=== PATIENT | male | born 1970 | race Two or more races ===

== ENCOUNTER 2019-12-14 13:07 | Inpatient (IN) | payer MEDICAID ==
[~2019-12-14] VITALS: Ht 165.1 cm; Wt 66.0 kg
[2019-12-14] MEDS: FAMOTIDINE 20 MG TAB PO SCH (01:30)
[2019-12-14] MEDS ORDERED: ACETAMINOPHEN 325 MG TAB PO ONE ×2 (14:07→14:30)
[2019-12-14 15:32] LABS: Albumin 1.5 g/dL (3.4-5.0); Calcium 8.2 mg/dL (8.5-10.1); Magnesium 2.3 mg/dL (1.6-2.6); Potassium 4.5 mmol/L (3.5-5.1)
[2019-12-14 15:33] LABS: Basophils # (auto) 0 10 ^3/uL (0-0.2); Basophils % (auto) 0.2 % (0.0-2.0); Eosinophils # (auto) 0.6 10 ^3/uL (0-0.8); Eosinophils % (auto) 3.5 % (0.0-7.0); Hematocrit 41.8 % (41.0-53.0); Hemoglobin 13.7 g/dL (13.5-17.5); Lymphocytes # (auto) 1.1 10 ^3/uL (0.4-5.4); Lymphocytes % (auto) 6.3 % (10.0-50.0); Mean Corpuscular Hemoglobin 28.9 pg (28.0-32.0); Mean Corpuscular Hgb Conc. 32.8 g/dL (32.0-36.0); Mean Corpuscular Volume 88.1 fL (80.0-100.0); Monocytes # (auto) 0.4 10 ^3/uL (0-1.3); Monocytes % (auto) 2.6 % (0.0-12.0); Neutrophils # (auto) 14.8 10 ^3/uL (1.6-8.6); Neutrophils % (auto) 87.4 % (37.0-80.0); Platelet Count (auto) 444 10^3/uL (140-450); Red Blood Cells 4.74 10^6/uL (4.5-5.90); Red Cell Distribution Width 12.9 % (11.8-14.3); White Blood Cell 16.9 10^3/uL (4.4-10.8)
[2019-12-14 15:35] LABS: BUN/Creatinine Ratio 17.5; Bilirubin, Total 0.3 mg/dL (0.2-1.0); Total Protein 6.5 g/dL (6.4-8.2)
[2019-12-14] MEDS ORDERED: SODIUM CHLORIDE 0.9% 1,000 ML IVB ONE (18:47)
[2019-12-14] MEDS ORDERED: AZITHROMYCIN 500MG/ 250ML 250 ML IV ONE (19:00)
[2019-12-14] MEDS ORDERED: DOXYCYCLINE 100 MG TAB/CAP PO ONE (19:00)
[2019-12-14] MEDS ORDERED: SODIUM CHLORIDE 0.9% 1,000 ML IV SCH (21:32)
[2019-12-14] MEDS ORDERED: NITROGLYCERIN 0.4 MG SL TAB SL PRN (21:45)
[2019-12-14] MEDS ORDERED: MORPHINE SULF INJ 2 MG/ML SYRINGE 1ML IV PRN (21:45)
[2019-12-14] MEDS ORDERED: cefTRIAXone 1GM/50ML D5W 50 ML IV ONE (21:45)
[2019-12-14] MEDS ORDERED: ONDANSETRON HCL 4 MG/2 ML VIAL IV PRN (21:45)
[2019-12-14] MEDS ORDERED: TEMAZEPAM 15 MG CAP PO PRN (21:45)
[2019-12-14] MEDS ORDERED: DEXTROSE (50%) 50ML SYRG IV PRN (21:45)
[2019-12-14] MEDS ORDERED: ALBUTEROL SULF HFA 90MCG INH 200DOSE IN SCH (22:00)
[2019-12-14] MEDS: ACETAMINOPHEN 500 MG TAB PO PRN (23:15)
[2019-12-14] MEDS ORDERED: IPRATROPIUM BROM 0.5 MG/2.5ML INH SOL ONE (23:27)
[2019-12-14] MEDS ORDERED: ALBUTEROL SULF 2.5 MG/0.5ML(0.5%) NEB SOLN ONE (23:27)
[2019-12-15] MEDS: ACETAMINOPHEN 500 MG TAB PO PRN ×3 (00:34→13:49)
[2019-12-15 01:00] LABS: Magnesium 2.3 mg/dL (1.6-2.6)
[2019-12-15 01:03] LABS: Lactic Acid w/Reflex 2.1 mmol/L (0.4-2.0)
[2019-12-15 01:09] LABS: Lactate Dehydrogenase 330 U/L (87-241)
[2019-12-15] MEDS: FAMOTIDINE 20 MG TAB PO SCH ×3 (01:30→22:15)
[2019-12-15 01:47] LABS: CRP High Sensitivity > 19.0 mg/dL (< 0.3)
[2019-12-15 02:04] LABS: Basophils # (auto) 0 10 ^3/uL (0-0.2); Basophils % (auto) 0.2 % (0.0-2.0); Eosinophils # (auto) 0.2 10 ^3/uL (0-0.8); Eosinophils % (auto) 1.4 % (0.0-7.0); Hematocrit 36.6 % (41.0-53.0); Lymphocytes # (auto) 1.5 10 ^3/uL (0.4-5.4); Lymphocytes % (auto) 8.4 % (10.0-50.0); Mean Corpuscular Hemoglobin 28.5 pg (28.0-32.0); Mean Corpuscular Hgb Conc. 32.7 g/dL (32.0-36.0); Monocytes # (auto) 1.2 10 ^3/uL (0-1.3); Monocytes % (auto) 6.5 % (0.0-12.0); Neutrophils # (auto) 14.8 10 ^3/uL (1.6-8.6); Neutrophils % (auto) 83.5 % (37.0-80.0); Platelet Count (auto) 413 10^3/uL (140-450); Red Cell Distribution Width 13.3 % (11.8-14.3); White Blood Cell 17.7 10^3/uL (4.4-10.8)
[2019-12-15] MEDS: ACCU-CHEK COMFORT CURVE STRIP VI SCH ×4 (02:06→17:21)
[2019-12-15] MEDS: InsuLIN REG 1unit/0.01ml Soln (100units/ml) SC SCH ×4 (02:10→17:52)
[2019-12-15 02:22] LABS: Albumin 1.3 g/dL (3.4-5.0); BUN/Creatinine Ratio 21.6; Calcium 7.1 mg/dL (8.5-10.1); Potassium 3.7 mmol/L (3.5-5.1)
[2019-12-15 02:25] LABS: Bilirubin, Total 0.2 mg/dL (0.2-1.0); Total Protein 5.6 g/dL (6.4-8.2)
[2019-12-15 02:26] LABS: INR 1.08 (0.9-1.15); Partial Thromboplastin Time 28.1 sec (23.64-32.05)
[2019-12-15 04:58] LABS: Urine Bacteria NONE SEEN /hpf (None Seen); Urine Blood Negative /uL (Negative); Urine Specific Gravity 1.038 (1.001-1.035); Urine WBC 1 /hpf (0 - 3)
[2019-12-15] MEDS ORDERED: ENOXAPARIN SOD 40 MG/0.4 ML SYRINGE SC SCH (10:00)
[2019-12-15] MEDS: ASCORBIC ACID 1,000 MG TAB PO SCH (10:02)
[2019-12-15] MEDS: CHOLECALCIFEROL (VITD3) 1,000UNIT=25mCg TAB PO SCH (10:02)
[2019-12-15] MEDS: AZITHROMYCIN 500MG/ 250ML 250 ML IV SCH (10:02)
[2019-12-15] MEDS: ZINC SULFATE 220mg CAP or TAB PO SCH (10:02)
[2019-12-15] MEDS ORDERED: PIPERACILLIN-TAZO 4.5GM 100 ML IV ONE (12:45)
[2019-12-15] MEDS ORDERED: InsuLIN REG 1unit/0.01ml Soln (100units/ml) IV ONE (13:00)
[2019-12-15] MEDS ORDERED: SODIUM CHLORIDE 0.9% 1,000 ML IV ONE (13:00)
[2019-12-15] MEDS ORDERED: IOHEXOL 350 MG/ML 100ML IJ ONE (13:48)
[2019-12-15] MEDS: guaiFENesin-DM 100/10mg/5ml SYR PO PRN (13:48)
[2019-12-15] MEDS ORDERED: VANCOMYCIN PER PHARMACY 0 MG IV SCH (15:45)
[2019-12-15] MEDS: VANCOMYCIN 1GM/250ML 250 ML IV SCH (17:00)
[2019-12-15] MEDS ORDERED: cefTRIAXone 1GM/50ML D5W 50 ML IV SCH (22:00)
[2019-12-15] MEDS ORDERED: ENOXAPARIN SOD 80 MG/0.8ML SYRINGE SC SCH (22:00)
[2019-12-15] MEDS: PIPERACILLIN-TAZO 4.5GM 100 ML IV SCH (22:15)
[2019-12-15] MEDS: INSULIN LANTUS (GLARGINE) 1 /0.01ml (100units/ml) SC SCH (22:19)
[2019-12-15] MEDS ORDERED: ALBUTEROL SULF 2.5 MG/0.5ML(0.5%) NEB SOLN NEB ONE (23:00)
[2019-12-15] MEDS ORDERED: IPRATROPIUM BROM 0.5 MG/2.5ML INH SOL NEB ONE (23:00)
[2019-12-16] VITALS (10 sets, daily range): BP systolic 88–168; BP diastolic 54–85
[2019-12-16] MEDS: ACCU-CHEK COMFORT CURVE STRIP VI SCH ×4 (00:36→18:55)
[2019-12-16] MEDS: InsuLIN REG 1unit/0.01ml Soln (100units/ml) SC SCH ×4 (00:39→18:55)
[2019-12-16] MEDS: VANCOMYCIN 1GM/250ML 250 ML IV SCH ×3 (02:41→20:45)
[2019-12-16] MEDS: SODIUM CHLORIDE 0.9% 1,000 ML IV SCH ×4 (02:43→21:30)
[2019-12-16] MEDS: PIPERACILLIN-TAZO 4.5GM 100 ML IV SCH ×3 (06:58→22:35)
[2019-12-16] MEDS ORDERED: guaiFENesin-DM 100/10mg/5ml SYR PO PRN (07:15)
[2019-12-16] MEDS: ACETAMINOPHEN 500 MG TAB PO PRN ×2 (07:39→16:47)
[2019-12-16] MEDS: guaiFENesin-DM 100/10mg/5ml SYR PO PRN (07:39)
[2019-12-16] MEDS ORDERED: MIDAZOLAM HCL 5 MG/ML-1ML VIAL ONE ×2 (08:29→08:43)
[2019-12-16] MEDS ORDERED: MIDAZOLAM DRIP 50 mg/50mL 50 ML IV ONE (08:34)
[2019-12-16] MEDS ORDERED: ETOMIDATE (2MG/ML) 20ML VIAL IV ONE ×2 (08:45→09:30)
[2019-12-16] MEDS ORDERED: fentaNYL CITRATE 100 MCG/2 ML VL ONE (08:53)
[2019-12-16] MEDS: MIDAZOLAM DRIP 50 mg/50mL 50 ML IV SCH (09:27)
[2019-12-16] MEDS ORDERED: fentaNYL CITRATE 100 MCG/2 ML VL IV ONE (09:30)
[2019-12-16] MEDS ORDERED: MIDAZOLAM HCL 5 MG/ML-1ML VIAL IV ONE ×2 (09:30→10:00)
[2019-12-16] MEDS: FAMOTIDINE 20 MG TAB PO SCH ×2 (10:00→22:00)
[2019-12-16] MEDS: ASCORBIC ACID 1,000 MG TAB PO SCH (10:00)
[2019-12-16] MEDS: CHOLECALCIFEROL (VITD3) 1,000UNIT=25mCg TAB PO SCH (10:00)
[2019-12-16] MEDS: ZINC SULFATE 220mg CAP or TAB PO SCH (10:00)
[2019-12-16 10:04] LABS: BUN/Creatinine Ratio 11.1; Calcium 7.5 mg/dL (8.5-10.1); Potassium 3.3 mmol/L (3.5-5.1)
[2019-12-16] MEDS ORDERED: NOREPINEPHRINE 8 MG/250ML KIT 250 ML IV ONE (10:27)
[2019-12-16] MEDS ORDERED: NOREPINEPHRINE 8 MG/250ML KIT 250 ML IV SCH (10:30)
[2019-12-16] MEDS: ENOXAPARIN SOD 40 MG/0.4 ML SYRINGE SC SCH (10:46)
[2019-12-16] MEDS: INSULIN LANTUS (GLARGINE) 1 /0.01ml (100units/ml) SC SCH ×2 (10:49→23:16)
[2019-12-16] MEDS: AZITHROMYCIN 500MG/ 250ML 250 ML IV SCH (11:37)
--- NOTE | 2019-12-16 13:06 | NUR ---
RT NOTE: FIO2 DECREASED TO 85% FROM 100%. RN ALVARO AWARE. PT. APPEARS TO BE TOLERATING WELL.
[2019-12-16] MEDS: POTASSIUM CHL 20MEQ/100ML 100 ML IV SCH ×2 (16:10→17:46)
[2019-12-16] MEDS ORDERED: PROPOFOL 100 ML IV ONE (18:08)
[2019-12-16] MEDS: PROPOFOL 100 ML IV SCH (18:10)
[2019-12-16] MEDS: FAMOTIDINE (10MG/ML) 2ML VL IV SCH (22:42)
[2019-12-16] MEDS ORDERED: ACETAMINOPHEN 650 MG RECT SUPP PR PRN (22:45)
[2019-12-16] MEDS ORDERED: ACETAMINOPHEN 325 MG RECT SUPP PR ONE (23:32)
[2019-12-16] MEDS ORDERED: ACETAMINOPHEN 650 MG RECT SUPP PR ONE (23:36)
[2019-12-17] VITALS (12 sets, daily range): BP systolic 87–142; BP diastolic 50–80
[2019-12-17] MEDS: ACCU-CHEK COMFORT CURVE STRIP VI SCH ×3 (00:52→19:30)
[2019-12-17] MEDS: InsuLIN REG 1unit/0.01ml Soln (100units/ml) SC SCH ×3 (00:52→19:30)
[2019-12-17] MEDS: VANCOMYCIN 1GM/250ML 250 ML IV SCH ×3 (05:33→21:24)
[2019-12-17] MEDS: PIPERACILLIN-TAZO 4.5GM 100 ML IV SCH ×3 (06:00→22:00)
[2019-12-17] MEDS ORDERED: IBUPROFEN 100MG/5ML ORAL SUSP 100 MG/5 ML UD GT PRN (06:30)
[2019-12-17] MEDS ORDERED: ACETAMINOPHEN 650 mg PER 20 mL UD PO PRN (06:30)
[2019-12-17] MEDS: ACETAMINOPHEN 650 mg PER 20 mL UD PO PRN (07:05)
[2019-12-17] MEDS: SODIUM CHLORIDE 0.9% 1,000 ML IV SCH (07:25)
[2019-12-17] MEDS: FAMOTIDINE (10MG/ML) 2ML VL IV SCH ×2 (08:43→21:42)
[2019-12-17] MEDS: MIDAZOLAM DRIP 50 mg/50mL 50 ML IV SCH ×3 (09:27→23:30)
[2019-12-17] MEDS: AZITHROMYCIN 500MG/ 250ML 250 ML IV SCH (10:00)
[2019-12-17] MEDS: ZINC SULFATE 220mg CAP or TAB PO SCH (10:00)
[2019-12-17] MEDS: CHOLECALCIFEROL (VITD3) 1,000UNIT=25mCg TAB PO SCH (10:00)
[2019-12-17] MEDS: ENOXAPARIN SOD 40 MG/0.4 ML SYRINGE SC SCH (10:00)
[2019-12-17] MEDS ORDERED: FAMOTIDINE (10MG/ML) 2ML VL IV SCH (10:00)
[2019-12-17] MEDS: ASCORBIC ACID 1,000 MG TAB PO SCH (10:00)
[2019-12-17 10:22] LABS: Basophils # (auto) 0 10 ^3/uL (0-0.2); Basophils % (auto) 0.1 % (0.0-2.0); Eosinophils # (auto) 0.8 10 ^3/uL (0-0.8); Eosinophils % (auto) 6.8 % (0.0-7.0); Hemoglobin 9.1 g/dL (13.5-17.5); Lymphocytes # (auto) 0.9 10 ^3/uL (0.4-5.4); Lymphocytes % (auto) 7.7 % (10.0-50.0); Mean Corpuscular Hemoglobin 28.9 pg (28.0-32.0); Mean Corpuscular Hgb Conc. 31.3 g/dL (32.0-36.0); Mean Corpuscular Volume 92.3 fL (80.0-100.0); Monocytes # (auto) 0.4 10 ^3/uL (0-1.3); Monocytes % (auto) 3.6 % (0.0-12.0); Neutrophils # (auto) 9.3 10 ^3/uL (1.6-8.6); Neutrophils % (auto) 81.8 % (37.0-80.0); Platelet Count (auto) 276 10^3/uL (140-450); Red Blood Cells 3.15 10^6/uL (4.5-5.90); Red Cell Distribution Width 13.4 % (11.8-14.3); White Blood Cell 11.4 10^3/uL (4.4-10.8)
[2019-12-17 10:30] LABS: Magnesium 2.1 mg/dL (1.6-2.6)
[2019-12-17 10:39] LABS: BUN/Creatinine Ratio 9.2; Bilirubin, Total 0.2 mg/dL (0.2-1.0); Total Protein 5.2 g/dL (6.4-8.2)
[2019-12-17 10:43] LABS: Calcium 5.9 mg/dL (8.5-10.1)
[2019-12-17 10:50] LABS: Albumin 0.7 g/dL (3.4-5.0); Potassium 2.9 mmol/L (3.5-5.1)
[2019-12-17] MEDS: ALBUMIN 25% 50 ML IV SCH ×2 (11:30→20:17)
[2019-12-17] MEDS: POTASSIUM CHL 20MEQ/100ML 100 ML IV SCH ×2 (11:30→19:00)
[2019-12-17] MEDS: FLUCONAZOLE 200MG/100ML 100 ML IV SCH ×2 (13:00→14:00)
[2019-12-17] MEDS: PROPOFOL 100 ML IV SCH ×2 (19:00→23:30)
[2019-12-17 19:03] LABS: Lactic Acid w/Reflex 2.2 mmol/L (0.4-2.0)
[2019-12-17] MEDS: INSULIN LANTUS (GLARGINE) 1 /0.01ml (100units/ml) SC SCH (22:00)
[2019-12-18] VITALS (13 sets, daily range): BP systolic 94–138; BP diastolic 49–75
[2019-12-18] MEDS: SODIUM CHLORIDE 0.9% 1,000 ML IV SCH ×2 (00:05→16:45)
[2019-12-18] MEDS: InsuLIN REG 1unit/0.01ml Soln (100units/ml) SC SCH ×4 (00:30→18:13)
[2019-12-18] MEDS: ACETAMINOPHEN 650 mg PER 20 mL UD PO PRN ×2 (03:40→12:09)
[2019-12-18] MEDS: ALBUMIN 25% 50 ML IV SCH (03:44)
[2019-12-18] MEDS: MIDAZOLAM DRIP 50 mg/50mL 50 ML IV SCH ×2 (04:00→06:43)
[2019-12-18] MEDS: PROPOFOL 100 ML IV SCH ×2 (04:00→06:45)
[2019-12-18 05:48] LABS: Basophils # (auto) 0.1 10 ^3/uL (0-0.2); Basophils % (auto) 0.5 % (0.0-2.0); Eosinophils # (auto) 1.7 10 ^3/uL (0-0.8); Eosinophils % (auto) 11.1 % (0.0-7.0); Hematocrit 30.8 % (41.0-53.0); Hemoglobin 10.2 g/dL (13.5-17.5); Lymphocytes # (auto) 0.9 10 ^3/uL (0.4-5.4); Lymphocytes % (auto) 5.9 % (10.0-50.0); Mean Corpuscular Hemoglobin 28.9 pg (28.0-32.0); Mean Corpuscular Hgb Conc. 33.2 g/dL (32.0-36.0); Mean Corpuscular Volume 87.3 fL (80.0-100.0); Monocytes # (auto) 0.6 10 ^3/uL (0-1.3); Monocytes % (auto) 3.6 % (0.0-12.0); Neutrophils # (auto) 12.4 10 ^3/uL (1.6-8.6); Neutrophils % (auto) 78.9 % (37.0-80.0); Platelet Count (auto) 371 10^3/uL (140-450); Red Blood Cells 3.53 10^6/uL (4.5-5.90); White Blood Cell 15.7 10^3/uL (4.4-10.8)
[2019-12-18] MEDS: ACCU-CHEK COMFORT CURVE STRIP VI SCH ×4 (06:07→18:13)
[2019-12-18] MEDS: NOREPINEPHRINE 8 MG/250ML KIT 250 ML IV SCH (06:15)
[2019-12-18 06:18] LABS: Albumin 1.4 g/dL (3.4-5.0); Calcium 7.9 mg/dL (8.5-10.1); Magnesium 2.5 mg/dL (1.6-2.6); Potassium 4.1 mmol/L (3.5-5.1)
[2019-12-18 06:21] LABS: BUN/Creatinine Ratio 16.1; Bilirubin, Total 0.3 mg/dL (0.2-1.0); Total Protein 5.6 g/dL (6.4-8.2)
[2019-12-18] MEDS: PIPERACILLIN-TAZO 4.5GM 100 ML IV SCH ×2 (06:25→14:49)
--- NOTE | 2019-12-18 06:30 | NUR ---
Respiratory note: FIO2 INCREASED TO % FOR SPO2 OF 82%. RN IDRIS AWARE OF CHANGE.
--- NOTE | 2019-12-18 06:55 | NUR ---
Respiratory note: RECEIVED PATIENT ON V20 V200 VENT ORALLY INTUBATED WITH AN 8.0 ETT SECURED VIA MYRNA AT THE 23CM MARKING AT THE LIP, AND MECHANICALLY VENTILATED WITH THE CHARTED SETTINGS. SPO2 89%, LUNG SOUNDS DIM T/O. SMALL AMOUNT OF THICK YELLOW SECRETIONS WHEN SUCTIONED. SKIN IS WARM/DRY TO THE TOUCH AND IS INTACT NEAR MYRNA SITE. THERE IS A NGT IN THE RIGHT NARE, AND A TRIPLE LUMEN CENTRAL LINE IS PLACED IN THE RIGHT IJ. NO NEW AM CXR TO ASSESS. PATIENT IS SEDATED ON VERSED AND PROPOFOL DRIPS AND IS UNRESPONSIVE TO BOTH VERBAL/TACTILE STIMULI. HE IS RESTING COMFORTABLY AND TOLERATING VENT WELL, NO CHANGES MADE. VENT PLUGGED INTO RED OUTLET AND ALL ALARMS ARE SET AND AUDIBLE. WILL CONTINUE TO ASSESS PATIENT WELL VENTILATOR FUNCTION.
[2019-12-18] MEDS: VANCOMYCIN 1GM/250ML 250 ML IV SCH ×4 (06:59→18:34)
[2019-12-18] MEDS: ASCORBIC ACID 1,000 MG TAB PO SCH (10:00)
[2019-12-18] MEDS: FAMOTIDINE (10MG/ML) 2ML VL IV SCH (10:18)
[2019-12-18] MEDS: ENOXAPARIN SOD 40 MG/0.4 ML SYRINGE SC SCH (10:20)
[2019-12-18] MEDS: INSULIN LANTUS (GLARGINE) 1 /0.01ml (100units/ml) SC SCH ×2 (10:20→22:20)
[2019-12-18] MEDS: AZITHROMYCIN 500MG/ 250ML 250 ML IV SCH (10:25)
--- NOTE | 2019-12-18 11:15 | NUR ---
WOUND CARE NOTE: PATIENT NOTED TO BE INTUBATED, ADDED PATIENT TO SKIN INTEGRITY MONITORING. PATIENT ADMITTED TO [facility] WITH DIAGNOSIS OF PNA. CURRENT RASHIDA SCORE ASSESSED AT 10. PATIENT IS RESTING ON HOSPITAL BED. HE IS INTUBATED, SEDATED. PER BEDSIDE NURSE, HE IS WOUND FREE AT THIS TIME. APPLIED NAMAN FOAM BOOTS PREVENTATIVE TO BILATERAL FEET/HEELS. RECOMMEND: FREQUENT TURN SCHEDULE Q 2 HOURS, PRN CONDITION PERMITS, WITH PRESSURE REDISTRIBUTION USING PILLOWS/WEDGES, BID/PRN APPLICATION WITH MOISTURE BARRIER CREAM, OPTIFOAM GENTLE SACRAL DRESSING, NAMAN FOAM BOOTS TO BILATERAL FEET/HEELS, DIETARY CONSULT FOR INTUBATION STATUS, CONTINUED MONITORING BY WOUND CARE TEAM.
[2019-12-18] MEDS ORDERED: methylPREDNISolone SOD SUCC 40 MG/ML VL IV ONE (11:30)
[2019-12-18] MEDS: FLUCONAZOLE 200MG/100ML 100 ML IV SCH ×2 (12:13→13:00)
[2019-12-18] MEDS: methylPREDNISolone SOD SUCC 40 MG/ML VL IV SCH ×2 (14:00→22:19)
[2019-12-18] MEDS ORDERED: FUROSEMIDE 40 MG/4 ML VIAL IV ONE (14:30)
[2019-12-18] MEDS ORDERED: MEROPENEM 1GM IVPB 100 ML IV ONE (20:00)
[2019-12-18] MEDS ORDERED: POTASSIUM EFFERVESENT TAB 25 MEQ GT ONE (20:15)
[2019-12-18] MEDS: LINEZOLID 600MG/300ML 300 ML IV SCH (21:46)
[2019-12-18] MEDS ORDERED: MEROPENEM 1GM IVPB 100 ML IV SCH (22:00)
[2019-12-18] MEDS: ENOXAPARIN SOD 80 MG/0.8ML SYRINGE SC SCH (22:19)
--- NOTE | 2019-12-18 23:45 | NUR ---
RECEIVED PT FROM ER. PT CONNECTED TO MECHANICAL VENTILATOR AND APPLIED TO ANIMAL SHELTER CLERK ONCE IN ICU BED. PT HAS VERSED AT 15 MCG AND PROP AT 35 MCG RUNNING FOR SEDATION. SINUS TACH ON MONITOR. VITAL SIGNS FOLLOWS: HR 109, 84% FI02, BP 109/56, RR 26, AND TEMP 100.6 ORALLY. ET SIZE 8/24 CM AT THE LIP. VENT SETTINGS FOLLOWS: AC 18, vT 550, PEEP 10 AND FI02 OF 100%. WHEN SUCTIONED ORALLY COPIOUS WHITE, THICK SECRETIONS NOTED. WHEN SUCTIONED DOWN ET TUBE SMALL AMOUNT OF WHITE, THICK SECRETIONS NOTED. PT TURNED WHEN PLACED IN ICU BED AND 02 SATS MAINTAINING BETWEEN 84-88% DESPITE SUCTIONING, HIGH FOWLERS, AND LAVAGE BY RT. WILL REASSESS PT TOLERANCE TO TURNING. PT HAS RIJ TLC PLACED 12/16/19, R HAND 20G, RAC 18G. SCDS AND NAMAN BOOTS APPLIED. PHOTOS TAKEN OF SACRAL AREA AND WOUND CONSULT PLACED. NG TUBE TO RIGHT NARE, POSITIVE PLACEMENT NOTED. TUBE REMAINS CLAMPED.
[2019-12-19] VITALS (104 sets, daily range): BP systolic 86–116; BP diastolic 49–68
[2019-12-19] MEDS: InsuLIN REG 1unit/0.01ml Soln (100units/ml) SC SCH ×5 (00:05→23:57)
[2019-12-19 00:33] LABS: Basophils # (auto) 0 10 ^3/uL (0-0.2); Basophils % (auto) 0.2 % (0.0-2.0); Eosinophils # (auto) 0 10 ^3/uL (0-0.8); Eosinophils % (auto) 0.1 % (0.0-7.0); Hemoglobin 10.3 g/dL (13.5-17.5); Lymphocytes # (auto) 0.6 10 ^3/uL (0.4-5.4); Mean Corpuscular Hemoglobin 29.2 pg (28.0-32.0); Mean Corpuscular Hgb Conc. 33.1 g/dL (32.0-36.0); Mean Corpuscular Volume 88.2 fL (80.0-100.0); Monocytes # (auto) 0.3 10 ^3/uL (0-1.3); Monocytes % (auto) 2.1 % (0.0-12.0); Neutrophils # (auto) 13.2 10 ^3/uL (1.6-8.6); Neutrophils % (auto) 93.6 % (37.0-80.0); Platelet Count (auto) 424 10^3/uL (140-450); Red Blood Cells 3.51 10^6/uL (4.5-5.90); White Blood Cell 14.1 10^3/uL (4.4-10.8)
[2019-12-19 01:20] LABS: Albumin 1.2 g/dL (3.4-5.0); BUN/Creatinine Ratio 23.6; Calcium 7.9 mg/dL (8.5-10.1)
[2019-12-19 01:23] LABS: Bilirubin, Total 0.4 mg/dL (0.2-1.0); Total Protein 5.7 g/dL (6.4-8.2)
--- NOTE | 2019-12-19 02:05 | NUR ---
PT UNABLE TO TOLERATE TURNING AT THIS TIME DUE TO FI02 AND SATS MAINTAINING BETWEEN 89-91%.
[2019-12-19] MEDS: methylPREDNISolone SOD SUCC 40 MG/ML VL IV SCH ×3 (05:25→22:15)
[2019-12-19] MEDS: MIDAZOLAM DRIP 50 mg/50mL 50 ML IV SCH ×5 (05:26→22:30)
[2019-12-19] MEDS: ACCU-CHEK COMFORT CURVE STRIP VI SCH ×5 (05:30→23:58)
--- NOTE | 2019-12-19 07:30 | NUR ---
Opening Shift Note Assumed care of patient, intubated and sedated. No S/S of distress/SOB or pain. See interventions for complete assessment. Bed locked on low position, side rails up x2, bed alarms on at all times. Will continue to monitor for changes Q1hr and PRN.
--- NOTE | 2019-12-19 08:05 | NUR ---
Received call from patient's son Kahlil who's able to provide password. Updated on patient's status and POC, verbalized understanding. All questions and concerns addressed.
--- NOTE | 2019-12-19 09:00 | NUR ---
Received call from patient's son Don who's able to provide password. Updated on patient's status and POC, verbalized understanding. All questions and concerns addressed.
[2019-12-19] MEDS: SODIUM CHLORIDE 0.9% 1,000 ML IV SCH (09:04)
[2019-12-19] MEDS: LINEZOLID 600MG/300ML 300 ML IV SCH ×2 (09:04→20:17)
[2019-12-19] MEDS: PROPOFOL 100 ML IV SCH ×3 (09:06→18:04)
--- NOTE | 2019-12-19 09:20 | NUR ---
Dr Cooley at bedside, updated on patient's status. Patient seen and examined. Received order to start patient on Azithromax 500 IV daily. Orders read back and verified. Will carry out.
[2019-12-19] MEDS ORDERED: POTASSIUM EFFERVESENT TAB 25 MEQ GT SCH (10:00)
[2019-12-19] MEDS ORDERED: FUROSEMIDE 40 MG/4 ML VIAL IV SCH (10:00)
[2019-12-19] MEDS ORDERED: AZITHROMYCIN 500MG/ 250ML 250 ML IV SCH (10:00)
[2019-12-19] MEDS: IPRATROPIUM BROM 0.5 MG/2.5ML INH SOL NEB SCH ×4 (10:06→22:04)
[2019-12-19] MEDS: ALBUTEROL SULF 2.5 MG/0.5ML(0.5%) NEB SOLN NEB SCH ×4 (10:06→22:03)
--- NOTE | 2019-12-19 11:00 | NUR ---
Spoke to patient's daughter Ayla who's able to provided password. Updated on patient's status and POC, verbalized understanding. All questions and concerns addressed.
[2019-12-19] MEDS: ENOXAPARIN SOD 80 MG/0.8ML SYRINGE SC SCH (11:12)
[2019-12-19] MEDS: ASCORBIC ACID 1,000 MG TAB PO SCH (11:13)
[2019-12-19] MEDS: MEROPENEM 1GM IVPB 100 ML IV SCH ×2 (11:14→18:02)
--- NOTE | 2019-12-19 11:30 | NUR ---
WOUND CARE NOTE: New wound care request received regarding patient's skin integrity issue that are noted by bedside nurse upon patient's arrival to unit. Patient is 49 y/o Male with admitting diagnosis of Pna. Patient is resting in bed in Rm. 102. Patient is intubated,sedated and mechanically ventilated. Patient appears to be in no pain using Fall Contreras Faces Pain Scale.HIs Rick score is 12. Bedside nurse noted and took photograph of hyperpigmented skin to patient's distal sacrum which is undetermined if Stage 1 pressure injury, ecchymosis vs DTI. Per patient's nurse request not to turn patient at this time due to "unstable to turn". Unable to assess and palpate. Patient is receiving BID/PRN cleaning and application of Barrier cream to sacral/buttocks per MD order. Wound care will try to see patient at later time. Addendum: 12/19/19 at 1835 by So Guzman RN [id number] able to see patient for sacral and back skin assessment. Noted patient's distal sacrum/upper buttocks has triangular shaped non-blanchable dark redness consistent with Stage 1 pressure injury. Bedside nurse cleansed and applied Z Guard cream to patient's sacrum as ordered. Intact light purple ecchymosis also noted to his L lower back, area is clean and dry, left open to air. Repositioned patient for comfort facing his Rt. side, redistributed pressure points with pillows. Patient tolerated well. LENNOX Suarez at bedside.
--- NOTE | 2019-12-19 12:00 | NUR ---
Dr Amaro at bedside, updated on patient's status. Patient seen and examined. Received order to start patient on Glucerna at 30 ml. Read back and verified. Will carry out.
--- NOTE | 2019-12-19 12:23 | NUR ---
Nutrition Assessment Notes Please refer to link for full assessment notes. Est Energy needs: 1006-5477 kcals (17-20 kcal/kgBW) Est Protein needs: 100-133 gms/day (1.2-1.6 gm/kgBW) Will continue to monitor and reassess prn. Addendum: 12/19/19 at [address] Amended: Links added.
[2019-12-19] MEDS ORDERED: Glucerna 1.2 Cal 1Liter BOTTLE GT SCH (12:30)
[2019-12-19] MEDS: INSULIN LANTUS (GLARGINE) 1 /0.01ml (100units/ml) SC SCH ×2 (12:43→23:57)
[2019-12-19] MEDS: FLUCONAZOLE 200MG/100ML 100 ML IV SCH ×2 (13:01→15:41)
[2019-12-19] MEDS ORDERED: PANTOPRAZOLE 40 MG/10 ML VIAL INJ IV ONE (14:45)
[2019-12-19] MEDS: NOREPINEPHRINE 8 MG/250ML KIT 250 ML IV SCH (18:02)
--- NOTE | 2019-12-19 21:50 | NUR ---
SEDATION RESTARTED PATIENT IS CONTINUOUSLY COUGHING. ORAL AND ETT SUCTION DONE. VERSED DRIP RESTARTED.
[2019-12-20] VITALS (108 sets, daily range): BP systolic 94–141; BP diastolic 46–71
--- NOTE | 2019-12-20 01:00 | NUR ---
Central Line Dressing Changes Central line dressing change done with a sterile technique. Cleansed with chloraprep scrub/betadine. bio-patch applied to the site. Occlusive dressing applied.
--- NOTE | 2019-12-20 01:30 | NUR ---
Patient bathe/linen change Patient given complete bath with chlorhexidine wipes. Skin integrity assessed for any changes. Linens changed. Patient repositioned for comfort.
[2019-12-20] MEDS: IPRATROPIUM BROM 0.5 MG/2.5ML INH SOL NEB SCH ×6 (02:22→22:10)
[2019-12-20] MEDS: ALBUTEROL SULF 2.5 MG/0.5ML(0.5%) NEB SOLN NEB SCH ×6 (02:22→22:10)
[2019-12-20] MEDS: MEROPENEM 1GM IVPB 100 ML IV SCH ×3 (02:48→17:45)
[2019-12-20] MEDS: MIDAZOLAM DRIP 50 mg/50mL 50 ML IV SCH ×4 (05:04→21:28)
[2019-12-20] MEDS: methylPREDNISolone SOD SUCC 40 MG/ML VL IV SCH ×3 (05:33→22:36)
[2019-12-20] MEDS: ACCU-CHEK COMFORT CURVE STRIP VI SCH ×3 (05:34→17:45)
[2019-12-20] MEDS: InsuLIN REG 1unit/0.01ml Soln (100units/ml) SC SCH ×3 (06:26→18:46)
[2019-12-20 06:37] LABS: BUN/Creatinine Ratio 31.4; Potassium 4.5 mmol/L (3.5-5.1)
[2019-12-20] MEDS: NOREPINEPHRINE 8 MG/250ML KIT 250 ML IV SCH (06:50)
--- NOTE | 2019-12-20 07:30 | NUR ---
Opening Shift Note Assumed care of patient, intubated and sedated. See interventions for complete assessment. Bed locked on low position, side rails up x2, bed alarms on at all times, will continue to monitor for changes Q1hr and PRN.
[2019-12-20] MEDS: LINEZOLID 600MG/300ML 300 ML IV SCH ×2 (08:34→19:44)
--- NOTE | 2019-12-20 09:00 | NUR ---
Patient coughing and facial grimacing, sedation increased. Will continue to monitor.
--- NOTE | 2019-12-20 09:40 | NUR ---
Dr Cooley at bedside, updated on patient's status. Patient seen and examined. Received order for RT to pull ET 1.5 cm out and to re-start Diprivan due to patient's work of breathing, no plans for CPAP at this time. Orders read back and verified. Will carry out.
[2019-12-20] MEDS: PROPOFOL 100 ML IV SCH ×2 (10:16→17:44)
[2019-12-20] MEDS: ENOXAPARIN SOD 40 MG/0.4 ML SYRINGE SC SCH (10:19)
[2019-12-20] MEDS: PANTOPRAZOLE 40 MG/10 ML VIAL INJ IV SCH (10:20)
[2019-12-20] MEDS: ASCORBIC ACID 1,000 MG TAB PO SCH (10:21)
[2019-12-20] MEDS: INSULIN LANTUS (GLARGINE) 1 /0.01ml (100units/ml) SC SCH ×2 (10:41→22:57)
--- NOTE | 2019-12-20 10:50 | NUR ---
Dr Amaro at bedside, updated on patient's status. Patient seen and examined. Will carry out new orders.
--- NOTE | 2019-12-20 11:13 | NUR ---
Received call from patient's son Kahlil who's able to provide password. Updated on patient's status and POC, verbalized understanding. All questions and concerns addressed.
[2019-12-20] MEDS: FLUCONAZOLE 200MG/100ML 100 ML IV SCH ×2 (12:42→13:51)
--- NOTE | 2019-12-20 12:45 | NUR ---
This RN came back from lunch, patient RR high 30's, BP 130's, HR 110's, patient grimacing. Sedation increased. Will continue to monitor.
--- NOTE | 2019-12-20 14:21 | NUR ---
assessment Patient is a 49 year old male in ICU. Per patients daughter Ayla prior to admission patient lived home with her and was independent. Per Ayla patient had a cough for weeks before going to ER. Per Ayla hair cough was getting worse so she transported patient to ER. Patient has no need for DME prior to admission. Patient uses [facility] in [place]. Patient has no insurance. Per Choco Santamaria of [facility] he may qualify if family brings back paperwork for [employer]. I informed Ayla I will continue to monitor and follow up as appropriate. Ayla verbalized understanding. Addendum: 12/20/19 at 1434 by Valery SHARPE Amended: Links added.
--- NOTE | 2019-12-20 15:36 | NUR ---
Patient's HR low 60's, SBP low 100's, patient on moderate sedation. Will decrease sedation and continue to monitor.
--- NOTE | 2019-12-20 18:10 | NUR ---
Respiratory note: NEW VENT SETTINGS WERE GIVEN PER DR. Leland MCCARTHY, RN AWARE. ABG TO FOLLOW IN 2 HOURS.
--- NOTE | 2019-12-20 19:32 | NUR ---
Opening Shift Note Assumed care of patient who is sedated and connected to ventilator. No S/S of distress/SOB or pain. Patient does have elevated temp. Cooling measures stated. Ventilation orders match ventilator setting. Patient attached to continuous EKG monitoring, continuous pulse oximetry, and a BP cuff is wrapped around his right arm, set to measure BP q 15 minutes. Instructed on POC and to call for assist PRN, will continue to monitor for changes Q1hr and PRN.
--- NOTE | 2019-12-20 21:25 | NUR ---
Unable to attempt sedation vacation at this time. Patient required more sedation (Versed increased--see IV spreadsheet). Patient too unstable at this time. Addendum: 12/20/19 at 2126 by HARSHAL PUENTE RN Amended: Links added.
--- NOTE | 2019-12-20 22:58 | NUR ---
Patient's son, Kahlil, called and, after confirming password, I gave a brief update.
[2019-12-21] VITALS (107 sets, daily range): BP systolic 106–144; BP diastolic 49–70
[2019-12-21] MEDS: ACCU-CHEK COMFORT CURVE STRIP VI SCH ×5 (00:44→23:56)
[2019-12-21] MEDS: InsuLIN REG 1unit/0.01ml Soln (100units/ml) SC SCH ×5 (00:50→23:55)
--- NOTE | 2019-12-21 01:31 | NUR ---
Performed sterile dressing change to right IJ catheter after it became soiled by mucus. Stitches intact securing IJ to skin. No signs of redness or inflammation. No drainage from cath site. Cleansed site and placed new Biopatch across site. Site covered with Tegaderm. Name, date, and initials written on sticker placed over cath site. Patient tolerated well.
[2019-12-21] MEDS: ALBUTEROL SULF 2.5 MG/0.5ML(0.5%) NEB SOLN NEB SCH ×6 (02:25→21:50)
[2019-12-21] MEDS: IPRATROPIUM BROM 0.5 MG/2.5ML INH SOL NEB SCH ×6 (02:25→21:50)
[2019-12-21] MEDS: MEROPENEM 1GM IVPB 100 ML IV SCH ×3 (03:02→17:48)
[2019-12-21] MEDS: PROPOFOL 100 ML IV SCH ×3 (03:03→21:19)
--- NOTE | 2019-12-21 03:21 | NUR ---
Turned patient, suctioned, and performed oral care. Patient tolerated well. Will continue to assess.
[2019-12-21 04:02] LABS: Basophils # (auto) 0 10 ^3/uL (0-0.2); Basophils % (auto) 0.2 % (0.0-2.0); Eosinophils # (auto) 0 10 ^3/uL (0-0.8); Hematocrit 28.5 % (41.0-53.0); Hemoglobin 9.6 g/dL (13.5-17.5); Lymphocytes # (auto) 0.3 10 ^3/uL (0.4-5.4); Lymphocytes % (auto) 4.7 % (10.0-50.0); Mean Corpuscular Hemoglobin 29.1 pg (28.0-32.0); Mean Corpuscular Hgb Conc. 33.6 g/dL (32.0-36.0); Mean Corpuscular Volume 86.8 fL (80.0-100.0); Monocytes # (auto) 0.4 10 ^3/uL (0-1.3); Monocytes % (auto) 4.9 % (0.0-12.0); Neutrophils # (auto) 6.6 10 ^3/uL (1.6-8.6); Neutrophils % (auto) 90.2 % (37.0-80.0); Platelet Count (auto) 502 10^3/uL (140-450); Red Blood Cells 3.29 10^6/uL (4.5-5.90); Red Cell Distribution Width 13.1 % (11.8-14.3); White Blood Cell 7.4 10^3/uL (4.4-10.8)
[2019-12-21 04:21] LABS: BUN/Creatinine Ratio 37.1; Calcium 8.2 mg/dL (8.5-10.1); Potassium 3.9 mmol/L (3.5-5.1)
--- NOTE | 2019-12-21 05:12 | NUR ---
Complete bed bath and linen change performed. Patient tolerated well. Room restocked for AM shift. Will continue to assess.
[2019-12-21] MEDS: NOREPINEPHRINE 8 MG/250ML KIT 250 ML IV SCH (06:32)
--- NOTE | 2019-12-21 07:14 | NUR ---
Closing shift note. Patient care endorsed to LENNOX Rivera. Patient sedated with RASS of -3, laying in bed in comfortable position. No sign of distress or pain.
[2019-12-21] MEDS: MIDAZOLAM DRIP 50 mg/50mL 50 ML IV SCH ×3 (07:45→20:32)
--- NOTE | 2019-12-21 08:00 | NUR ---
RESIDUALS RECEIVED PATIENT WITH TUBE FEEDINGS OFF DUE TO HIGH RESIDUALS, CURRENT RESIDUALS 20CC. WILL RESTART FEEDINGS AT LOW RATE AND CONTINUE TO MONITOR
[2019-12-21] MEDS: LINEZOLID 600MG/300ML 300 ML IV SCH ×2 (08:20→20:40)
--- NOTE | 2019-12-21 09:10 | NUR ---
DR MCCARTHY AT BEDSIDE DISCUSSED PATIENTS STATUS, NO NEW ORDERS RECEIVED
--- NOTE | 2019-12-21 09:12 | NUR ---
SEDATION VACATION HELD- NOT APPROPRIATE AT THIS TIME DUE TO RESPIRATORY STATUS Addendum: 12/21/19 at 0914 by Nicole Walter RN Amended: Links added.
--- NOTE | 2019-12-21 10:42 | NUR ---
Nutrition Followup Note Wt 83.007kg Pt is intubated and sedated. Pt with sedation vacation held per RN note. Pt with propofol running at 2.3ml/hr to provide 61 kcal of lipids. Pt with Glucerna 1.2 ordered at 30 ml/hr, consider increasing as medically feasible to a goal rate of 50 ml/hr. Est Energy needs: 1995-1310 kcals (17-20 kcal/kgBW) Est Protein needs: 100-133 gms/day (1.2-1.6 gm/kgBW) Will continue to monitor and reassess prn. Labs: BUN 26H, Alb 1.2L, GLUC 267H, Ca 8.2L BM: Pt with no BM noted Skin: BS 10 high risk, full details in urgent care nurse practitioner doc PES: 1) Increased nutrient needs r/t pt with no PO intake aeb pt is sedated, intubated, NPO with NG tube clamped 2) Obesity r/t energy intake in excess of energy needs aeb 135% IBW and BMI of 30.5 kg/m2 3) Altered nutrition related lab values r/t current/chronic medical condition aeb elev LFTs, hyperglycemia, hypocalcemia, severe hypoalbuminemia Comments: Will continue to monitor PO status, skin status, pertinent labs and weight trends. Will f/u in 2-3 days. Consider Glucerna 1.2 at goal rate of 50 ml/hr as medically feasible. 1) Continue to carefully monitor pt NPO status 2) Gradually advance pt to oral diet when medically feasible and as tolerated 3) If albumin continues trending down, consider Prostat 1 pkt BID 4) Consider a daily MVI with 500mg VitC BID 5) Continue current plan of care Expected Outcomes/Goals: Pt to advance to an oral diet Pt labs to improve
--- NOTE | 2019-12-21 10:58 | NUR ---
PATIENTS SON CALLED FOR UPDATE PROVIDED PASSWORD. UPDATED ON CURRENT STATUS AND PLAN OF CARE. ADDRESSED CONCERNS
[2019-12-21] MEDS: PANTOPRAZOLE 40 MG/10 ML VIAL INJ IV SCH (11:00)
[2019-12-21] MEDS: methylPREDNISolone SOD SUCC 40 MG/ML VL IV SCH ×2 (11:00→22:26)
[2019-12-21] MEDS: ASCORBIC ACID 1,000 MG TAB PO SCH (11:00)
[2019-12-21] MEDS: ENOXAPARIN SOD 40 MG/0.4 ML SYRINGE SC SCH (11:01)
[2019-12-21] MEDS: INSULIN LANTUS (GLARGINE) 1 /0.01ml (100units/ml) SC SCH ×2 (11:03→22:28)
--- NOTE | 2019-12-21 12:15 | NUR ---
RESIDUALS TUBE FEEDINGS AT 10CC/HR. RESIDUALS 60CC. FEEDINGS HELD AT THIS TIME
--- NOTE | 2019-12-21 12:20 | NUR ---
DR PRAJAPATI AT BEDSIDE DISCUSSED PATIENTS STATUS AND PLAN OF CARE. RECEIVED NEW ORDERS.
[2019-12-21] MEDS ORDERED: DEXTROSE (50%) 50ML SYRG IV PRN (12:45)
[2019-12-21] MEDS: FLUCONAZOLE 200MG/100ML 100 ML IV SCH ×2 (13:01→14:02)
--- NOTE | 2019-12-21 20:30 | NUR ---
OPENING NOTE: INTUBATED AND SEDATED. DOES NOT OPEN EYES NOR TRACK, BUT DOES HAVE STRONG COUGHING EPISODES. NSR, HR 60s. SBP 120-130s. 8.0 ETT, 25 AT THE LIP. LS CTA, DIMINISHED TO THE BASES. EVEN AND UNLABORED BREATHING. SpO2>95%. THIN ORAL AND ETT SECRETIONS. ABD SOFT. HYPOACTIVE BS. UNKNOWN LBM. NGT CLAMPED, + AIR BOLUS. ADLER PATENT AND INTACT, DRAINING LIGHT KUSH URINE WITH SEDIMENT. RIGHT IJ TLC, CDI, AND PATENT WITH BLOOD RETURN. NOTED WITH DIFFUSE SCATTERED ERYTHEMA FROM NECK DOWN TO KNEES. NO PAIN BEHAVIORS IDENTIFIED. REINFORCED POC. MAINTAINED PATIENT SAFETY: BED LOCKED AND IN THE LOWEST POSITION, FREQUENT VISUAL CHECKS. WILL CONT CARE
--- NOTE | 2019-12-21 21:37 | NUR ---
SPOKE WITH PATIENT'S SON: AFTER PASSWORD VERIFIED, UPDATED ON PATIENT'S STATUS.
[2019-12-22] VITALS (104 sets, daily range): BP systolic 102–136; BP diastolic 54–74
[2019-12-22] MEDS: MEROPENEM 1GM IVPB 100 ML IV SCH ×3 (01:26→17:24)
[2019-12-22] MEDS: ALBUTEROL SULF 2.5 MG/0.5ML(0.5%) NEB SOLN NEB SCH ×6 (01:59→22:13)
[2019-12-22] MEDS: IPRATROPIUM BROM 0.5 MG/2.5ML INH SOL NEB SCH ×6 (01:59→22:13)
[2019-12-22] MEDS: PROPOFOL 100 ML IV SCH ×3 (02:23→23:33)
[2019-12-22] MEDS: MIDAZOLAM DRIP 50 mg/50mL 50 ML IV SCH ×3 (02:24→20:46)
[2019-12-22 04:26] LABS: Basophils # (auto) 0 10 ^3/uL (0-0.2); Basophils % (auto) 0.1 % (0.0-2.0); Eosinophils # (auto) 0 10 ^3/uL (0-0.8); Hemoglobin 9.4 g/dL (13.5-17.5); Monocytes # (auto) 0.4 10 ^3/uL (0-1.3); Monocytes % (auto) 4.5 % (0.0-12.0); Neutrophils # (auto) 7.1 10 ^3/uL (1.6-8.6); White Blood Cell 7.9 10^3/uL (4.4-10.8)
[2019-12-22 04:28] LABS: Hematocrit 27.8 % (41.0-53.0); Lymphocytes # (auto) 0.5 10 ^3/uL (0.4-5.4); Lymphocytes % (auto) 5.9 % (10.0-50.0); Mean Corpuscular Hemoglobin 29.4 pg (28.0-32.0); Mean Corpuscular Hgb Conc. 33.7 g/dL (32.0-36.0); Mean Corpuscular Volume 87.4 fL (80.0-100.0); Neutrophils % (auto) 89.5 % (37.0-80.0); Platelet Count (auto) 487 10^3/uL (140-450); Red Blood Cells 3.18 10^6/uL (4.5-5.90); Red Cell Distribution Width 12.9 % (11.8-14.3)
[2019-12-22 04:45] LABS: BUN/Creatinine Ratio 35.1; Calcium 8.1 mg/dL (8.5-10.1); Potassium 3.9 mmol/L (3.5-5.1)
--- NOTE | 2019-12-22 05:23 | NUR ---
PARTIAL BED BATH, ORAL CARE, ADLER CARE, AND PARTIAL LINEN CHANGE COMPLETED
[2019-12-22] MEDS: InsuLIN REG 1unit/0.01ml Soln (100units/ml) SC SCH ×4 (05:36→23:20)
[2019-12-22] MEDS: ACCU-CHEK COMFORT CURVE STRIP VI SCH ×4 (05:56→23:27)
[2019-12-22] MEDS: NOREPINEPHRINE 8 MG/250ML KIT 250 ML IV SCH (06:25)
--- NOTE | 2019-12-22 07:22 | NUR ---
REPORT AND CARE ENDORSED TO NOEMI RN
[2019-12-22] MEDS: LINEZOLID 600MG/300ML 300 ML IV SCH ×2 (07:49→20:47)
[2019-12-22] MEDS: PANTOPRAZOLE 40 MG/10 ML VIAL INJ IV SCH (09:48)
[2019-12-22] MEDS: methylPREDNISolone SOD SUCC 40 MG/ML VL IV SCH ×2 (09:48→21:46)
[2019-12-22] MEDS: ENOXAPARIN SOD 40 MG/0.4 ML SYRINGE SC SCH (09:48)
[2019-12-22] MEDS: INSULIN LANTUS (GLARGINE) 1 /0.01ml (100units/ml) SC SCH ×2 (09:49→21:46)
--- NOTE | 2019-12-22 10:00 | NUR ---
DR. Leland MCCARTHY AT BEDSIDE: ORDERS/ VENT CHANGES MD UPDATED ON PT'S CURRENT STATUS, LABS AND CXR RESULTS FOR TODAY. ORDERS GIVEN TO INCREASE FIO2 TO 35% AND CHANGE PEEP TO +8. CHANGES MADE BY R.T. PATIENT TOLERATING WELL. CONTINUE CARE.
--- NOTE | 2019-12-22 10:25 | NUR ---
FAMILY CALLED: UPDATED PT'S SON ON PT'S CURRENT STATUS AND POC FOR TODAY. FAMILY TO CALL BACK LATER ON TODAY. WILL CONTINUE CARE.
[2019-12-22] MEDS: FLUCONAZOLE 200MG/100ML 100 ML IV SCH ×2 (12:30→13:58)
--- NOTE | 2019-12-22 20:15 | NUR ---
REMOVED NAMAN BOOTS - HEELS FLOATED OFF OF BED
--- NOTE | 2019-12-22 20:15 | NUR ---
OPENING NOTE: INTUBATED AND SEDATED. DOES NOT OPEN EYES NOR TRACK, BUT DOES HAVE STRONG COUGHING EPISODES. NSR, HR 60s. SBP 120-130s. 8.0 ETT, 25 AT THE LIP. LS CTA, DIMINISHED TO THE BASES. EVEN AND UNLABORED BREATHING. SpO2>95%. THIN ORAL AND ETT SECRETIONS. ABD SOFT. HYPOACTIVE BS. UNKNOWN LBM. NGT CLAMPED, + AIR BOLUS. ADLER PATENT AND INTACT, DRAINING LIGHT KUSH URINE WITH SEDIMENT. RIGHT IJ TLC, CDI, AND PATENT WITH BLOOD RETURN. NO PAIN BEHAVIORS IDENTIFIED. REINFORCED POC. MAINTAINED PATIENT SAFETY: BED LOCKED AND IN THE LOWEST POSITION, FREQUENT VISUAL CHECKS. WILL CONT CARE
--- NOTE | 2019-12-22 20:42 | NUR ---
SPOKE WITH PATIENT'S DAUGHTER: AFTER PASSWORD VERIFIED, UPDATED ON PATIENT'S STATUS.
--- NOTE | 2019-12-22 21:26 | NUR ---
UNABLE TO COMPLETE SEDATION VACATION AT THIS TIME: PATIENT REQUIRING INCREASED PEEP. WILL REASSESS SEDATION LEVEL Addendum: 12/22/19 at 2127 by Vernell Verde RN RN Amended: Links added.
--- NOTE | 2019-12-22 21:46 | NUR ---
SCHEDULED LANTUS HELD: BG 138 AND NPO
--- NOTE | 2019-12-22 23:17 | NUR ---
SCATTERED RASH ON TORSO AND EXTREMITIES WAS RESOLVING BUT NOW APPARENT AGAIN
[2019-12-23] VITALS (105 sets, daily range): BP systolic 76–137; BP diastolic 38–81
[2019-12-23] MEDS: MEROPENEM 1GM IVPB 100 ML IV SCH ×3 (01:35→17:42)
--- NOTE | 2019-12-23 01:35 | NUR ---
CENTRAL LINE DRESSING AND INJECTION CAPS CHANGED
[2019-12-23] MEDS: ALBUTEROL SULF 2.5 MG/0.5ML(0.5%) NEB SOLN NEB SCH ×6 (02:12→22:30)
[2019-12-23] MEDS: IPRATROPIUM BROM 0.5 MG/2.5ML INH SOL NEB SCH ×6 (02:12→22:30)
--- NOTE | 2019-12-23 02:16 | NUR ---
BED BATH WITH NO RINSE BODY WASH, RONAK CARE, ADLER CARE, ORAL CARE, AND FULL LINEN CHANGE COMPLETED
[2019-12-23] MEDS: MIDAZOLAM DRIP 50 mg/50mL 50 ML IV SCH ×4 (02:41→17:42)
[2019-12-23] MEDS: InsuLIN REG 1unit/0.01ml Soln (100units/ml) SC SCH ×4 (05:56→23:28)
[2019-12-23] MEDS: ACCU-CHEK COMFORT CURVE STRIP VI SCH ×4 (06:18→23:27)
[2019-12-23] MEDS: PROPOFOL 100 ML IV SCH ×4 (06:18→21:21)
[2019-12-23] MEDS: NOREPINEPHRINE 8 MG/250ML KIT 250 ML IV SCH (06:27)
--- NOTE | 2019-12-23 07:17 | NUR ---
REPORT AND CARE ENDORSED TO LENNOX ROSS
--- NOTE | 2019-12-23 07:30 | NUR ---
Opening Shift Note Assumed care of patient, intubated and sedated. No S/S of distress/SOB or pain. See interventions for complete assessment. Bed locked on low position, side rails up x2, bed alarms on at all times will continue to monitor for changes Q1hr and PRN.
[2019-12-23] MEDS: LINEZOLID 600MG/300ML 300 ML IV SCH ×2 (07:37→20:51)
[2019-12-23] MEDS: PANTOPRAZOLE 40 MG/10 ML VIAL INJ IV SCH (09:49)
[2019-12-23] MEDS: methylPREDNISolone SOD SUCC 40 MG/ML VL IV SCH ×2 (09:50→22:02)
[2019-12-23] MEDS: ENOXAPARIN SOD 40 MG/0.4 ML SYRINGE SC SCH (09:50)
[2019-12-23] MEDS: INSULIN LANTUS (GLARGINE) 1 /0.01ml (100units/ml) SC SCH ×2 (10:00→21:56)
--- NOTE | 2019-12-23 11:08 | NUR ---
Received call from patient's son Kalhil who's able to provide password. Updated on patient's status and POC, verbalized understanding. All questions and concerns addressed.
[2019-12-23] MEDS: FLUCONAZOLE 200MG/100ML 100 ML IV SCH ×2 (11:44→13:29)
--- NOTE | 2019-12-23 13:00 | NUR ---
This RN came back from lunch, received order from Dr Amaro through poultry sexer Helen to re-start Glucerna. Will carry out.
--- NOTE | 2019-12-23 13:38 | NUR ---
Glucerna re-started at 15 ml/hr, will continue to monitor.
--- NOTE | 2019-12-23 14:59 | NUR ---
Patient tolerating tube feeding, no residuals noted. Glucerna increased to 30 ml/hr. Will continue to monitor.
--- NOTE | 2019-12-23 20:15 | NUR ---
REMOVED NAMAN BOOTS - HEELS FLOATED OFF OF BED
--- NOTE | 2019-12-23 20:30 | NUR ---
OPENING NOTE: INTUBATED AND SEDATED. DOES NOT OPEN EYES NOR TRACK, BUT DOES HAVE STRONG COUGHING EPISODES. SCLERAL EDEMA NOTED TO LEFT EYE. NSR, HR 90s. SBP 110-120s. 8.0 ETT, 25 AT THE LIP. LS CTA, DIMINISHED TO THE BASES. EVEN AND UNLABORED BREATHING. SpO2>95%. THIN ORAL AND ETT SECRETIONS. ABD SOFT. HYPOACTIVE BS. UNKNOWN LBM. NGT + AIR BOLUS, RUNNING GLUCERNA AT 30ML/HR, MINIMAL GASTRIC RESIDUAL. ADLER PATENT AND INTACT, DRAINING LIGHT KUSH URINE WITH SEDIMENT. RIGHT IJ TLC, CDI, AND PATENT WITH BLOOD RETURN. NO PAIN BEHAVIORS IDENTIFIED. REINFORCED POC. MAINTAINED PATIENT SAFETY: BED LOCKED AND IN THE LOWEST POSITION, FREQUENT VISUAL CHECKS. WILL CONT CARE
--- NOTE | 2019-12-23 21:00 | NUR ---
UNABLE TO COMPLETE SEDATION VACATION: PATIENT'S PROPOFOL WAS STOPPED FOR ~ 15 MINUTES EARLIER IN THE SHIFT, AND PATIENT'S HR WAS IN THE 90s AND RR IN THE 30s. STILL REQUIRING INCREASED PEEP. WILL CONT CARE. Addendum: 12/23/19 at 2203 by Vernell Verde RN RN Amended: Links added.
--- NOTE | 2019-12-23 22:15 | NUR ---
SPOKE WITH PATIENT'S SON: AFTER PASSWORD VERIFIED, UPDATED ON PATIENT'S STATUS. ANSWERED ALL QUESTIONS ABLE
--- NOTE | 2019-12-23 23:16 | NUR ---
TEMP 100F RECTALLY - ICE PACKS APPLIED
[2019-12-23] MEDS: ACETAMINOPHEN 650 mg PER 20 mL UD PO PRN (23:40)
[2019-12-24] VITALS (89 sets, daily range): BP systolic 90–130; BP diastolic 49–75
--- NOTE | 2019-12-24 | NUR ---
GASTRIC RESIDUAL < 10 ML - CONTINUE CURRENT TF RATE
[2019-12-24] MEDS: MIDAZOLAM DRIP 50 mg/50mL 50 ML IV SCH ×5 (00:12→23:45)
[2019-12-24] MEDS: MEROPENEM 1GM IVPB 100 ML IV SCH ×3 (01:48→17:37)
--- NOTE | 2019-12-24 01:50 | NUR ---
TEMP DOWN TO 99.5F
--- NOTE | 2019-12-24 02:00 | NUR ---
COMPLETE BATH AND LINEN CHANGE, NO STOOL, RIGHT TLC DRS CHANGED
[2019-12-24] MEDS: IPRATROPIUM BROM 0.5 MG/2.5ML INH SOL NEB SCH ×6 (02:20→22:26)
[2019-12-24] MEDS: ALBUTEROL SULF 2.5 MG/0.5ML(0.5%) NEB SOLN NEB SCH ×6 (02:20→22:26)
[2019-12-24] MEDS: PROPOFOL 100 ML IV SCH ×5 (03:06→23:45)
--- NOTE | 2019-12-24 03:08 | NUR ---
REMOVED RING FROM LEFT RING FINGER D/T INCREASED EDEMA: PLACED IN DENTURE CUP, LABELED WITH PATIENT STICKER, AND PLACED IN BEDSIDE DRAWERS
--- NOTE | 2019-12-24 03:09 | NUR ---
BED BATH WITH NO RINSE SPRAY, RONAK CARE, ADLER CARE, ORAL CARE, AND PARTIAL LINEN CHANGE COMPLETED
[2019-12-24 04:12] LABS: Hemoglobin 11.2 g/dL (13.5-17.5); Mean Corpuscular Hemoglobin 28.8 pg (28.0-32.0); Mean Corpuscular Volume 87.2 fL (80.0-100.0); Platelet Count (auto) 561 10^3/uL (140-450); Red Cell Distribution Width 13.5 % (11.8-14.3); White Blood Cell 12.7 10^3/uL (4.4-10.8)
--- NOTE | 2019-12-24 04:21 | NUR ---
GASTRIC RESIDUAL < 10 ML - CONTINUE TF AT CURRENT RATE
[2019-12-24 04:36] LABS: Albumin 1.6 g/dL (3.4-5.0); Calcium 7.9 mg/dL (8.5-10.1); Potassium 4.2 mmol/L (3.5-5.1)
[2019-12-24 04:39] LABS: BUN/Creatinine Ratio 37.3
[2019-12-24 04:50] LABS: Bilirubin, Total 0.4 mg/dL (0.2-1.0)
[2019-12-24 05:09] LABS: Basophils % (manual) 0 (0.0-2.0); Blast Cells 0; Eosinophils % (manual) 0 (0-7); Lymphocytes % (manual) 0 (10.0-50.0); Metamyelocytes % 0; Myelocytes % 0; Promyelocytes % 0; Reactive Lymphocytes 0
[2019-12-24] MEDS: InsuLIN REG 1unit/0.01ml Soln (100units/ml) SC SCH ×3 (05:17→17:29)
[2019-12-24] MEDS: ACCU-CHEK COMFORT CURVE STRIP VI SCH ×3 (06:11→18:00)
[2019-12-24] MEDS: NOREPINEPHRINE 8 MG/250ML KIT 250 ML IV SCH (06:11)
--- NOTE | 2019-12-24 06:34 | NUR ---
NAMAN BOOTS REAPPLIED
[2019-12-24 06:58] LABS: Band Neutrophils % (manual) 1; Monocytes % (manual) 5 (0-12)
--- NOTE | 2019-12-24 07:14 | NUR ---
REPORT AND CARE ENDORSED TO LENNOX SPRINGER
--- NOTE | 2019-12-24 07:30 | NUR ---
INITIAL ASSESSMENT COMPLETED . SEE FLOW SHEET FOR DATA. PT STILL ORALLY INTUBATED AND SEDATED.
[2019-12-24] MEDS: LINEZOLID 600MG/300ML 300 ML IV SCH ×2 (08:10→20:12)
[2019-12-24] MEDS: INSULIN LANTUS (GLARGINE) 1 /0.01ml (100units/ml) SC SCH ×2 (10:00→22:12)
--- NOTE | 2019-12-24 10:31 | NUR ---
VENT SETTINGS CHANGED TO AC RR 24, VT 500, PEEP [address] SHARI VALENTINE
[2019-12-24] MEDS: methylPREDNISolone SOD SUCC 40 MG/ML VL IV SCH ×2 (10:50→22:08)
[2019-12-24] MEDS: PANTOPRAZOLE 40 MG/10 ML VIAL INJ IV SCH (10:50)
[2019-12-24] MEDS: FLUCONAZOLE 200MG/100ML 100 ML IV SCH ×2 (10:51→13:00)
[2019-12-24] MEDS: ENOXAPARIN SOD 40 MG/0.4 ML SYRINGE SC SCH (10:51)
--- NOTE | 2019-12-24 11:43 | NUR ---
Nutrition Followup Notes Wt 80.4kg Pt is intubated and sedated with propofol running @ 22.997 ml/hr, providing 607 kcals from lipids. Pt with Glucerna 1.2 ordered at 30 ml/hr. Pt with adequate energy requirements aeb combined kcals meet 117% of est energy needs. Will continue to monitor PO status, skin status, pertinent labs and weight trends. Will f/u in 2-3 days. Est Energy needs: 1428-5517 kcals (17-20 kcal/kgBW) Est Protein needs: 100-133 gms/day (1.2-1.6 gm/kgBW) Will continue to monitor and reassess prn. Labs: Alb 1.6L, GLUC 244H, A1c 12.4 H, Ca 7.9L BM: Pt with no BM noted per RN doc Skin: BS 10 high risk, full details in career transition specialist doc PES: 1) Increased nutrient needs r/t pt with no PO intake aeb pt is sedated, intubated, NPO with NG tube clamped 2) Obesity r/t energy intake in excess of energy needs aeb 135% IBW and BMI of 30.5 kg/m2 3) Altered nutrition related lab values r/t current/chronic medical condition aeb elev LFTs, hyperglycemia, hypocalcemia, severe hypoalbuminemia Comments: Will continue to monitor PO status, skin status, pertinent labs and weight trends. Will f/u in 2-3 days. Consider Glucerna 1.2 at goal rate of 50 ml/hr as medically feasible. 1) Continue to carefully monitor pt NPO status 2) Gradually advance pt to oral diet when medically feasible and as tolerated 3) If albumin continues trending down, consider Prostat 1 pkt BID 4) Consider a daily MVI with 500mg VitC BID 5) Continue current plan of care
--- NOTE | 2019-12-24 12:00 | NUR ---
PT TOLERATING FEEDING WELL. GASTRIC RESIDUE ONLY 15 ML.
--- NOTE | 2019-12-24 12:28 | NUR ---
PER Leland AIKEN NO REPEAT ABG ON CURRENT VENTILATION MODE.
--- NOTE | 2019-12-24 17:00 | NUR ---
DR PRAJAPATI AT THE BEDSIDE . NO NEW ORDERS MADE.
[2019-12-24] MEDS: ACETAMINOPHEN 650 mg PER 20 mL UD PO PRN ×2 (17:31→17:36)
--- NOTE | 2019-12-24 17:35 | NUR ---
PT TEMP 100.0. RECTALLY, COLD BATH GIVEN AND TYLENOL GIVEN ORDERED.. REPOSITIONED FOR COMFORT.
--- NOTE | 2019-12-24 18:00 | NUR ---
Patient bathe/linen change Patient given partial bath. Skin integrity assessed for any changes. Linens changed. Patient repositioned for comfort.
--- NOTE | 2019-12-24 19:00 | NUR ---
REPORT GIVEN TO INCOMING NOC SHIFT.
--- NOTE | 2019-12-24 20:00 | NUR ---
RECIEVED PT INTUBATED AND LIGHTLY SEDATED, PT OPEN EYES, NOT TRACKING, DOES NOT FOLLOW COMMANDS, SKIN VERY WARM, RECTAL TEMP 99.7, VERSED GTT 8MG/HR, PROPOFOL 50MCG/KG/MIN VIA RIGHT IJ TLC, VS STABLE, NO PRESSORS, SEE INTERVENTIONS FOR HEAD TO TOE ASSESSMENT AND VITAL SIGNS
[2019-12-25] VITALS (93 sets, daily range): BP systolic 91–146; BP diastolic 53–85
[2019-12-25] MEDS: MEROPENEM 1GM IVPB 100 ML IV SCH ×3 (02:20→18:13)
[2019-12-25] MEDS: ALBUTEROL SULF 2.5 MG/0.5ML(0.5%) NEB SOLN NEB SCH ×6 (02:23→22:13)
[2019-12-25] MEDS: IPRATROPIUM BROM 0.5 MG/2.5ML INH SOL NEB SCH ×6 (02:23→22:13)
[2019-12-25 04:20] LABS: Hemoglobin 11.9 g/dL (13.5-17.5); Red Cell Distribution Width 13.4 % (11.8-14.3); White Blood Cell 12.2 10^3/uL (4.4-10.8)
[2019-12-25 04:23] LABS: Hematocrit 35.3 % (41.0-53.0); Mean Corpuscular Hemoglobin 29.2 pg (28.0-32.0); Mean Corpuscular Hgb Conc. 33.6 g/dL (32.0-36.0); Mean Corpuscular Volume 86.8 fL (80.0-100.0); Platelet Count (auto) 538 10^3/uL (140-450); Red Blood Cells 4.06 10^6/uL (4.5-5.90)
[2019-12-25] MEDS: PROPOFOL 100 ML IV SCH ×4 (04:25→15:59)
[2019-12-25 04:38] LABS: BUN/Creatinine Ratio 34.5; Calcium 7.9 mg/dL (8.5-10.1); Potassium 3.9 mmol/L (3.5-5.1)
[2019-12-25 04:54] LABS: Basophils % (manual) 0 (0.0-2.0); Blast Cells 0; Eosinophils % (manual) 0 (0-7); Metamyelocytes % 0; Myelocytes % 0; Promyelocytes % 0; Reactive Lymphocytes 0
[2019-12-25] MEDS: ACCU-CHEK COMFORT CURVE STRIP VI SCH ×5 (06:00→23:42)
[2019-12-25 06:11] LABS: Band Neutrophils % (manual) 2; Lymphocytes % (manual) 4 (10.0-50.0); Monocytes % (manual) 3 (0-12)
[2019-12-25] MEDS: NOREPINEPHRINE 8 MG/250ML KIT 250 ML IV SCH (06:50)
[2019-12-25] MEDS: MIDAZOLAM DRIP 50 mg/50mL 50 ML IV SCH ×2 (07:59→14:11)
[2019-12-25] MEDS: LINEZOLID 600MG/300ML 300 ML IV SCH ×2 (09:20→20:34)
--- NOTE | 2019-12-25 09:55 | NUR ---
Respiratory note: VENT CHECK PER , RR TO 18, PEEP OF 5. RN INFORMED OF CHANGES.
--- NOTE | 2019-12-25 09:56 | NUR ---
ENDORSED CARE REPORT GIVEN TO LENNOX ROSS.
[2019-12-25] MEDS: INSULIN LANTUS (GLARGINE) 1 /0.01ml (100units/ml) SC SCH ×2 (09:57→22:00)
[2019-12-25] MEDS: PANTOPRAZOLE 40 MG/10 ML VIAL INJ IV SCH (09:59)
[2019-12-25] MEDS: methylPREDNISolone SOD SUCC 40 MG/ML VL IV SCH ×2 (09:59→22:12)
--- NOTE | 2019-12-25 10:00 | NUR ---
Versed running at 10mg/hr, patient moderately sedated.
--- NOTE | 2019-12-25 10:00 | NUR ---
Patient's temperature 100F rectally, cooling measures done. Will continue to monitor.
--- NOTE | 2019-12-25 10:00 | NUR ---
Opening Shift Note Assumed care of patient, intubated and sedated. No S/S of distress/SOB or pain. See interventions for complete assessment. Bed locked on low position, side rails up x2, bed alarms on at all times, will continue to monitor for changes Q1hr and PRN.
--- NOTE | 2019-12-25 10:35 | NUR ---
WOUND CARE NOTE: Wound care in to see patient for skin integrity monitoring. Patient continue resting in ICU bed in Rm. 102. Patient is intubated,sedated and mechanically ventilated. Patient appears to be in no pain using Fall Contreras Faces Pain Scale. His Rick score is 10. Skin assessment done with the assistance of patient's nurse, LENNOX Katz. Patient's L corner lip noted with sore. Advised LENNOX Katz to show to MD ,will probably order some topical ointment. Patient's distal sacrum continue to display dry, peeling hyperpigmented skin. Damari care given, applied Z Guard cream and covered upper sacrum with protective Opti foam sacral dressing. Photograph of mentioned skin issue are taken for reference. Light purple, fading ecchymosis to patient's L hip/ lower back, remain intact ; area is clean and dry, left open to air. Repositioned patient for comfort facing his Lt. side, redistributed pressure points with pillows. Patient tolerated well. LENNOX Suarez at bedside. RECOMMENDATION: Continuation of all wound care orders prescribed by MD, continue with skin/wound plan of care, continue monitoring by wound care while patient is hospitalized. Addendum: 12/25/19 at 1151 by So Guzman RN Amended: Links added.
--- NOTE | 2019-12-25 10:40 | NUR ---
baking assistant Eileen at bedside to re-evaluate patient.
--- NOTE | 2019-12-25 11:35 | NUR ---
WOUND CARE NOTE: Wound care in to see patient for skin integrity monitoring. Patient continue resting in ICU bed in Rm. 102. Patient is intubated,sedated and mechanically ventilated. Patient appears to be in no pain using Fall Contreras Faces Pain Scale. His Rick score is 10. Skin assessment done with the assistance of patient's nurse, LENNOX Katz. Patient's L corner lip noted with sore;advised LENNOX Katz to show to MD when he do patient's rounds, probable order some topical ointment. Patient's distal sacrum continue to display dry, peeling hyperpigmented skin. Damari care given, applied Z Guard cream and covered upper sacrum with protective Opti foam sacral dressing. Photograph of mentioned skin issue are taken for reference. Light purple, fading ecchymosis to patient's L hip/ lower back, remain intact intact; area is clean and dry, left open to air. Repositioned patient for comfort facing his Lt. side, redistributed pressure points with pillows. Patient tolerated well. LENNOX Suarez at bedside.
[2019-12-25] MEDS: InsuLIN REG 1unit/0.01ml Soln (100units/ml) SC SCH ×5 (11:44→23:42)
[2019-12-25] MEDS: FLUCONAZOLE 200MG/100ML 100 ML IV SCH ×2 (11:46→13:56)
--- NOTE | 2019-12-25 13:00 | NUR ---
Dr Amaro at bedside, updated on patient's status. Patient seen and examined. Will carry out new orders.
[2019-12-25] MEDS: ACETAMINOPHEN 650 mg PER 20 mL UD PO PRN (13:57)
[2019-12-25] MEDS: ENOXAPARIN SOD 40 MG/0.4 ML SYRINGE SC SCH (13:58)
--- NOTE | 2019-12-25 16:27 | NUR ---
Received call from patient's son Kahlil who's able to provide password. Updated on patient's status and POC, verbalized understanding. All questions and concerns addressed.
--- NOTE | 2019-12-25 19:25 | NUR ---
OPENING NOTE RECEIVED REPORT FROM CHEYENNE RN AND ASSUMED CARE OF PT. PT IS SEDATED AND MECHANICALLY VENTILATED (SEE IV SPREADSHEET). VITAL SIGNS STABLE WITH NO S/S OF DISTRESS. PT OCCASIONALLY OPENS EYES AND MOVES EXTREMITIES X4. UNABLE TO FOLLOW COMMANDS AT THIS TIME. ADLER CATHETER IN PLACE AND DRAINING APPROPRIATELY. NAMAN BOOTS AND SCDS TO BLE. TUBE FEEDINGS RUNNING AT 30 ML/HR WITH NO RESIDUALS NOTED WHEN ASSESSED. POSITIVE PLACEMENT OF NG TUBE. WILL CONTINUE TO MONITOR AND ASSESS PT.
--- NOTE | 2019-12-25 22:12 | NUR ---
FAMILY CALL PTS SON BENSON CALLED. PASSWORD VERIFIED. MADE HIM AWARE OF PT CONDITION AND CURRENT PLAN OF CARE AT THIS TIME. VERBALIZED UNDERSTANDING. ALL QUESTIONS AND CONCERNS ADDRESSED.
[2019-12-26] VITALS (84 sets, daily range): BP systolic 99–160; BP diastolic 60–95
[2019-12-26] MEDS: MEROPENEM 1GM IVPB 100 ML IV SCH ×3 (01:52→17:50)
--- NOTE | 2019-12-26 01:57 | NUR ---
PT CARE GAVE PT CHG BATH AND PARTIAL HERNANDO CHANGE. SKIN ASSESSED WITH NO NEW CHANGES AT THIS TIME. NEW OPTIFOAM APPLIED TO SACRAL AREA. ORAL CARE DONE AND PT TURNED WITH NO DISTRESS NOTED.
[2019-12-26] MEDS: ACETAMINOPHEN 650 mg PER 20 mL UD PO PRN (02:00)
[2019-12-26] MEDS: ALBUTEROL SULF 2.5 MG/0.5ML(0.5%) NEB SOLN NEB SCH ×7 (02:12→22:25)
[2019-12-26] MEDS: IPRATROPIUM BROM 0.5 MG/2.5ML INH SOL NEB SCH ×7 (02:12→22:25)
[2019-12-26 04:39] LABS: Basophils # (auto) 0 10 ^3/uL (0-0.2); Eosinophils # (auto) 0 10 ^3/uL (0-0.8); Eosinophils % (auto) 0.2 % (0.0-7.0); Hematocrit 33.8 % (41.0-53.0); Hemoglobin 11.2 g/dL (13.5-17.5); Lymphocytes # (auto) 0.4 10 ^3/uL (0.4-5.4); Lymphocytes % (auto) 3.6 % (10.0-50.0); Mean Corpuscular Hemoglobin 29.1 pg (28.0-32.0); Mean Corpuscular Hgb Conc. 33.3 g/dL (32.0-36.0); Mean Corpuscular Volume 87.6 fL (80.0-100.0); Monocytes # (auto) 0.3 10 ^3/uL (0-1.3); Monocytes % (auto) 2.7 % (0.0-12.0); Neutrophils # (auto) 10.7 10 ^3/uL (1.6-8.6); Neutrophils % (auto) 93.5 % (37.0-80.0); Platelet Count (auto) 441 10^3/uL (140-450); Red Blood Cells 3.86 10^6/uL (4.5-5.90); Red Cell Distribution Width 13.5 % (11.8-14.3); White Blood Cell 11.5 10^3/uL (4.4-10.8)
[2019-12-26 05:09] LABS: Potassium 3.9 mmol/L (3.5-5.1)
[2019-12-26 05:17] LABS: Albumin 1.5 g/dL (3.4-5.0); BUN/Creatinine Ratio 27.4; Bilirubin, Total 0.3 mg/dL (0.2-1.0); Calcium 7.8 mg/dL (8.5-10.1)
[2019-12-26] MEDS: ACCU-CHEK COMFORT CURVE STRIP VI SCH ×3 (05:49→17:44)
[2019-12-26] MEDS: InsuLIN REG 1unit/0.01ml Soln (100units/ml) SC SCH ×3 (05:50→17:46)
--- NOTE | 2019-12-26 05:51 | NUR ---
Respiratory note: PT RECEIVED ON VENT # [id number]. PLUGGED INTO A RED OUTLET AND PROPER O2 SOURCE. AMBU BAG/MASK AT BEDSIDE WITH PEEP VALVE ATTACHED. ETT SECURED WITH A HOLISTER. OPEN SORE NOTED IN THE LEFT CORNER LIP LINE. NOC RN AWARE OF SORE. BILATERAL BS ARE CLEAR THROUGHOUT. SUCTIONED WITH SMALL, WHITE RETURN.GAG REFLEX INTACT. MED NEB TX GIVEN INLINE,TOLERATED WELL.PT IS ON SEDATION. SKIN IS WARM AND DRY TO THE TOUCH WITH NO EDEMA NOTED ON ANY APPENDICULARS.POC: MAINTAIN ADEQUATE OXYGENATION,VENTILATION,AND PULMONARY HYGIENE.
[2019-12-26] MEDS: NOREPINEPHRINE 8 MG/250ML KIT 250 ML IV SCH (06:50)
--- NOTE | 2019-12-26 07:02 | NUR ---
REPORT GIVEN TO CHEYENNE HIGH.
--- NOTE | 2019-12-26 07:30 | NUR ---
Opening Shift Note Assumed care of patient, intubated and sedated. No S/S of distress/SOB or pain. Tube feeding held in anticipation for possible CPAP today, awaiting MD rounds. See interventions for complete assessment. Bed locked on low position, side rails up x2, bed alarms on at all times, will continue to monitor for changes Q1hr and PRN.
[2019-12-26] MEDS: LINEZOLID 600MG/300ML 300 ML IV SCH ×2 (09:02→21:18)
[2019-12-26] MEDS: ENOXAPARIN SOD 40 MG/0.4 ML SYRINGE SC SCH (09:03)
[2019-12-26] MEDS: PANTOPRAZOLE 40 MG/10 ML VIAL INJ IV SCH (09:03)
[2019-12-26] MEDS: methylPREDNISolone SOD SUCC 40 MG/ML VL IV SCH (09:03)
[2019-12-26] MEDS: INSULIN LANTUS (GLARGINE) 1 /0.01ml (100units/ml) SC SCH ×2 (09:14→22:00)
--- NOTE | 2019-12-26 09:14 | NUR ---
Abbieus held, tube feeding off at this time.
--- NOTE | 2019-12-26 09:30 | NUR ---
Dr Cooley at bedside, updated on patient's status. Patient seen and examined. Plan to CPAP patient today. Will carry out new orders.
--- NOTE | 2019-12-26 09:31 | NUR ---
Respiratory note: NO VENT CHANGES ORDERED.PT REMAINS COMFORTABLY SEDATED. BS CLEAR. SUCTIONED SMALL, THIN, WHITE SECRETIONS.MED NEB TX GIVEN INLINE,TOLERATED WELL. WILL CONTINUE TO MONITOR ORDERED. ALARMS VERIFIED AND AUDIBLE.
[2019-12-26] MEDS ORDERED: FUROSEMIDE 40 MG/4 ML VIAL IV ONE (10:00)
[2019-12-26] MEDS ORDERED: POTASSIUM EFFERVESENT TAB 25 MEQ GT ONE (10:00)
--- NOTE | 2019-12-26 10:10 | NUR ---
Sedation turned off. Will inform RT.
--- NOTE | 2019-12-26 10:42 | NUR ---
Nutrition Followup Notes Wt 80.5kg Per RN pt TF is held and pt sedation turned off 12/25. Pt to under CPAP trial. Prior to turning off sedation pt on propofol at 20.697 ml/hr which provides 546 kcal of lipids. Pt also with Glucerna 1.2 ordered at 30 ml/hr Est Energy needs: 3912-7372 kcals (17-20 kcal/kgBW) Est Protein needs: 100-133 gms/day (1.2-1.6 gm/kgBW) Will continue to monitor and reassess prn. Labs: Creat 0.62L, GLUC 214H, Ca 7.8L, Alb 1.5L BM: Pt with no BM noted per RN doc Skin: BS 12 high risk, full details in healthcare project manager doc PES: 1) Increased nutrient needs r/t pt with no PO intake aeb pt is sedated, intubated, NPO with NG tube clamped 2) Obesity r/t energy intake in excess of energy needs aeb 135% IBW and BMI of 30.5 kg/m2 3) Altered nutrition related lab values r/t current/chronic medical condition aeb elev LFTs, hyperglycemia, hypocalcemia, severe hypoalbuminemia Comments: Will continue to monitor PO status, skin status, pertinent labs and weight trends. Will f/u in 2-3 days. Consider Glucerna 1.2 at goal rate of 50 ml/hr as medically feasible. 1) Continue to carefully monitor pt NPO status 2) Gradually advance pt to oral diet when medically feasible and as tolerated 3) If albumin continues trending down, consider Prostat 1 pkt BID 4) Consider a daily MVI with 500mg VitC BID 5) Continue current plan of care
--- NOTE | 2019-12-26 10:49 | NUR ---
Dr Amaro at bedside, updated on patient's status. Patient seen and examined. Received order for potassium IV instead of effervescence. Read back and verified. Will carry out.
--- NOTE | 2019-12-26 10:53 | NUR ---
Received call from patient's son Kahlil who's able to provide password. Updated on patient' s status and POC, verbalized understanding. All questions and concerns addressed.
--- NOTE | 2019-12-26 11:20 | NUR ---
Patient more awake, following simple commands. Saloni RT at bedside. Patient on CPAP. VS WNL. Will continue to monitor.
--- NOTE | 2019-12-26 12:05 | NUR ---
Respiratory note: WEANING PARAMETERS AND CPAP ABG RESULTS REPORTED TO DR MCCARTHY. VC 1432, NIF -54, RSBI 26, LEAK 250.DR MCCARTHY ORDERED TO EXTUBATE. LENNOX ROSS WILL BE MADE AWARE.
--- NOTE | 2019-12-26 12:20 | NUR ---
Respiratory note: PT EXTUBATED PER DR WALLS ORDER AND PLACED ON 40% COOL MIST AEROSOL MASK. NO STRIDOR NOTED UPON EXTUBATION. RN AT BEDSIDE POST EXTUBATION. PT TOLERATING CHANGE WELL.
--- NOTE | 2019-12-26 12:20 | NUR ---
Patient extubated by Saloni RT, patient tolerated well, no stridor noted, VS WNL. Patient awake and alert. No S/S of SOB/distress. On cool mist 40% FiO2, saturation mid 90's. Will continue to monitor.
[2019-12-26] MEDS: FLUCONAZOLE 200MG/100ML 100 ML IV SCH ×2 (13:12→14:52)
[2019-12-26] MEDS: POTASSIUM CHL 20MEQ/100ML 100 ML IV SCH ×2 (13:12→14:52)
--- NOTE | 2019-12-26 15:48 | NUR ---
Spoke to Dr Amaro over the phone, updated on patient's status. Per Dr Amaro patient can be transferred to [facility] if stable for the next three to four hours. Read back and verified. Will carry out.
[2019-12-26] MEDS: PROPOFOL 100 ML IV SCH (17:47)
--- NOTE | 2019-12-26 19:30 | NUR ---
RECEIVED REPORT FROM DAY RN, PT. IN BED AWAKE, ALERT AND VERBALLY RESPONSIVE IN [place] AND SOME CITIZEN OF [place], FOLLOWS COMMANDS,NO COMPLAINTS MADE AT THIS TIME. ON CONTINUOUS O2 @ 2L/NC, WITH WEAK COUGH NOTED. RT. IJ TLC INTACT. KEPT ON NPO.
--- NOTE | 2019-12-26 22:30 | NUR ---
SON BENSON CALLED, UPDATES WERE GIVEN.
[2019-12-26] MEDS: MUPIROCIN 2% OINT 15gm or 22gm TOP SCH (23:00)
[2019-12-27] VITALS: BP 130/79
[2019-12-27] MEDS: ACCU-CHEK COMFORT CURVE STRIP VI SCH ×4 (00:25→23:32)
[2019-12-27] MEDS: InsuLIN REG 1unit/0.01ml Soln (100units/ml) SC SCH ×4 (00:35→23:33)
[2019-12-27 02:00] VITALS: BP 123/84
[2019-12-27] MEDS: MEROPENEM 1GM IVPB 100 ML IV SCH ×3 (02:25→19:00)
[2019-12-27] MEDS: ALBUTEROL SULF 2.5 MG/0.5ML(0.5%) NEB SOLN NEB SCH ×6 (02:46→22:12)
[2019-12-27] MEDS: IPRATROPIUM BROM 0.5 MG/2.5ML INH SOL NEB SCH ×6 (02:47→22:12)
[2019-12-27 04:00] VITALS: BP 128/80
[2019-12-27 06:00] VITALS: BP 123/76
--- NOTE | 2019-12-27 06:00 | NUR ---
ORAL TEMP 101.1, TYLENOL PO GIVEN ORDERED, TOLERATED SMALL FLUIDS AND ICE CHIPS, NO COUGHING NOTED.
[2019-12-27] MEDS: ACETAMINOPHEN 650 mg PER 20 mL UD PO PRN (06:59)
--- NOTE | 2019-12-27 07:00 | NUR ---
REPORT GIVEN TO DAY RN.
[2019-12-27] MEDS: LINEZOLID 600MG/300ML 300 ML IV SCH ×2 (07:27→21:03)
[2019-12-27 07:30] VITALS: BP 126/83
--- NOTE | 2019-12-27 07:30 | NUR ---
Opening Shift Note Assumed care of patient, awake and alert. No S/S of distress/SOB or pain. Patient's temperature 102F orally. Patient was given Tylenol @ 0700. Cooling measures done. See interventions for complete assessment. Bed locked on low position, side rails up x2, bed alarms on at all times, call morrell within reach, instructed on POC and to call for assist PRN, will continue to monitor for changes Q1hr and PRN.
--- NOTE | 2019-12-27 08:51 | NUR ---
Spoke to Dr Amaro over the phone, updated on patient's status. Informed patient has been having fever 101F to 102F. verbalized understanding. Received order for CBC, CMP, physical therapy consult, swallow evaluation, Colace PO for constipation and Telemetry downgrade, discontinue hager catheter and central line. Orders read back and verified. Will carry out.
--- NOTE | 2019-12-27 09:15 | NUR ---
IV insertion IV access obtained, via clean sterile technique by inserting 22 gauge catheter at LT forearm after one attempt. IV secured properly. No trauma to site. Patient tolerated procedure well.
--- NOTE | 2019-12-27 09:23 | NUR ---
RT IJ TLC discontinued with sterile technique, blue tip intact. Pressure dressing applied to site. Patient tolerated procedure well.
[2019-12-27] MEDS: INSULIN LANTUS (GLARGINE) 1 /0.01ml (100units/ml) SC SCH ×2 (09:26→22:00)
[2019-12-27] MEDS: ENOXAPARIN SOD 40 MG/0.4 ML SYRINGE SC SCH (09:34)
[2019-12-27] MEDS: PANTOPRAZOLE 40 MG/10 ML VIAL INJ IV SCH (09:34)
[2019-12-27] MEDS: MUPIROCIN 2% OINT 15gm or 22gm TOP SCH ×2 (09:39→22:00)
[2019-12-27] MEDS: FUROSEMIDE 20 MG/2 ML VIAL IV SCH (09:40)
[2019-12-27] MEDS: DOCUSATE SOD 100 MG CAP PO SCH ×2 (09:41→22:00)
--- NOTE | 2019-12-27 09:57 | NUR ---
Dr Cooley at bedside, updated on patient's status. Patient seen and examined. Will carry out new order.
[2019-12-27] MEDS ORDERED: POTASSIUM EFFERVESENT TAB 25 MEQ PO SCH (10:00)
[2019-12-27 10:18] LABS: Basophils # (auto) 0 10 ^3/uL (0-0.2); Basophils % (auto) 0.1 % (0.0-2.0); Eosinophils # (auto) 0 10 ^3/uL (0-0.8); Eosinophils % (auto) 0.3 % (0.0-7.0); Hematocrit 40.8 % (41.0-53.0); Hemoglobin 13.3 g/dL (13.5-17.5); Lymphocytes % (auto) 6.1 % (10.0-50.0); Mean Corpuscular Hemoglobin 28.3 pg (28.0-32.0); Mean Corpuscular Hgb Conc. 32.7 g/dL (32.0-36.0); Mean Corpuscular Volume 86.4 fL (80.0-100.0); Monocytes # (auto) 1.1 10 ^3/uL (0-1.3); Monocytes % (auto) 6.5 % (0.0-12.0); Neutrophils # (auto) 14.1 10 ^3/uL (1.6-8.6); Platelet Count (auto) 379 10^3/uL (140-450); Red Blood Cells 4.72 10^6/uL (4.5-5.90); Red Cell Distribution Width 13.9 % (11.8-14.3); White Blood Cell 16.2 10^3/uL (4.4-10.8)
[2019-12-27 10:24] LABS: Albumin 1.8 g/dL (3.4-5.0); Calcium 8.1 mg/dL (8.5-10.1); Potassium 3.4 mmol/L (3.5-5.1)
[2019-12-27 10:30] LABS: BUN/Creatinine Ratio 37.1; Bilirubin, Total 0.6 mg/dL (0.2-1.0); Total Protein 6.6 g/dL (6.4-8.2)
--- NOTE | 2019-12-27 10:30 | NUR ---
Received call from patient's son Kahlil who's able to provide password. Updated on patient's status and POC, verbalized understanding. All questions and concerns addressed.
--- NOTE | 2019-12-27 10:32 | NUR ---
Hager catheter dc'd Order to discontinue hager catheter. Hager dc'd with clean technique following deflation of balloon. Patient tolerated well with no complaints of pain. Continue care.
--- NOTE | 2019-12-27 11:04 | NUR ---
NADINE TAMAYO transfered to Tele floor via hospital bed on manager medicare marketing and portable 02. All patient medications and personal belongings including pants, jacket, shoes and yellow metal ring transferred with patient to receiving floor. Patient care transferred to Eleuterio RN.
--- NOTE | 2019-12-27 11:50 | NUR ---
PT ARRIVES TO ROOM 294B. HE IS ALERT AND APPROPRIATE. LUNG SOUNDS ARE CLEAR. RESPIRATIONS ARE EVEN AND UNLABORED. RT NECK DSG SITE D&I. SITE IS BENIGN. O2 3L NC. IN SEMI FOWLERS. CALL LIGHT IN HANDS REACH. AWAITING SWALLOW EVAL.
[2019-12-27] MEDS: FLUCONAZOLE 200MG/100ML 100 ML IV SCH (13:00)
--- NOTE | 2019-12-27 15:00 | NUR ---
F/U WITH PT DEPT FOR DELAYED RESPONSE OF SWALLOW EVAL. PT IS SCHEDULED AND SHOULD BE EVALUATED TODAY. PT HAS ASKED TO EAT.
--- NOTE | 2019-12-27 16:21 | NUR ---
PT'S SON CALLS GIVES CORRECT PASSWORD. UPDATE GIVEN.
--- NOTE | 2019-12-27 18:56 | NUR ---
Multiple attempts to contact swallow eval unsuccessful. Consulted lithopone charger. informal nurse swallow eval performed at bedside with ice chips. Tolerates intake of ice chip. Listened to swallow. WNL. no cough. Tolerates swallowing jello. Call to Dr. Oviedo, un reachable. Call to on-call Dr. Johnson. Reported findings when assessed for swallowing. Orders full liquid diet as tolerated.
--- NOTE | 2019-12-27 19:34 | NUR ---
Opening Shift Note Received report and assumed care of patient. Patient is awake and alert, patient's extremities noted to be severely weak. No signs or symptoms of distress noted. Instructed patient on plan of care and to call for assistance as needed. Will continue to monitor.
--- NOTE | 2019-12-27 19:44 | NUR ---
WHEN ASSISTING WITH TAKING IN JELLO. NOTED TO HAVE DECREASED FINE MOTOR SKILL TO RIGHT HAND AND MORE WEAKNESS TO RIGHT ARM. PROVIDED SPOT SUPPORT WITH MOTORING RIGHT HAND TO MOUTH TO EAT WITH SPOON. FINDINGS PASSED ON IN REPORT TO ONCOMING RN.
[2019-12-27] MEDS ORDERED: POTASSIUM EFFERVESENT TAB 25 MEQ PO ONE (21:30)
[2019-12-27 22:00] VITALS: BP 124/83
[2019-12-27] MEDS ORDERED: TEMAZEPAM 15 MG CAP PO ONE (23:15)
[2019-12-28] MEDS: MEROPENEM 1GM IVPB 100 ML IV SCH ×3 (02:03→18:00)
[2019-12-28] MEDS: IPRATROPIUM BROM 0.5 MG/2.5ML INH SOL NEB SCH ×6 (02:05→21:58)
[2019-12-28] MEDS: ALBUTEROL SULF 2.5 MG/0.5ML(0.5%) NEB SOLN NEB SCH ×6 (02:05→21:58)
[2019-12-28] MEDS: InsuLIN REG 1unit/0.01ml Soln (100units/ml) SC SCH ×3 (05:48→18:00)
[2019-12-28] MEDS: ACCU-CHEK COMFORT CURVE STRIP VI SCH ×3 (05:48→18:13)
[2019-12-28 06:00] VITALS: BP 132/78
--- NOTE | 2019-12-28 07:20 | NUR ---
Opening Shift Note Assumed care of patient, awake and alert. No S/S of distress/SOB or pain. Instructed on POC and to call for assist PRN, will continue to monitor for changes Q1hr and PRN.
[2019-12-28] MEDS: LINEZOLID 600MG/300ML 300 ML IV SCH ×2 (07:40→21:59)
[2019-12-28 09:00] VITALS: BP 121/87
[2019-12-28] MEDS: INSULIN LANTUS (GLARGINE) 1 /0.01ml (100units/ml) SC SCH ×2 (10:00→22:00)
[2019-12-28] MEDS: MUPIROCIN 2% OINT 15gm or 22gm TOP SCH ×2 (10:00→22:00)
[2019-12-28] MEDS: FUROSEMIDE 20 MG/2 ML VIAL IV SCH (10:16)
[2019-12-28] MEDS: PANTOPRAZOLE 40 MG/10 ML VIAL INJ IV SCH (10:17)
[2019-12-28] MEDS: DOCUSATE SOD 100 MG CAP PO SCH ×2 (10:18→21:59)
[2019-12-28] MEDS: ENOXAPARIN SOD 40 MG/0.4 ML SYRINGE SC SCH (10:18)
--- NOTE | 2019-12-28 12:56 | NUR ---
Nutrition Followup Notes Wt 71.4kg Pt was alert and oriented at time of rounds. Pt sitting in chair at bedside. Pt reports no GI issues and appetite is okay. Pt diet advanced to full liquid 12/27, no po recorded yet of new diet. will monitor pt po and tolerance of diet advancement Est Energy needs: 7108-7375 kcals (17-20 kcal/kgBW) Est Protein needs: 100-133 gms/day (1.2-1.6 gm/kgBW) Will continue to monitor and reassess prn. Labs: BUn 23H, Creat 0.62L, Ca 8.1L, Alb 1.8L BM: Pt with no BM noted per RN doc Skin: BS 14 mod risk, full details in overnight caregiver doc PES: Resolved, pt diet advanced to full liq will monitor tolerance 1) Increased nutrient needs r/t pt with no PO intake aeb pt is sedated, intubated, NPO with NG tube clamped 2) Obesity r/t energy intake in excess of energy needs aeb 135% IBW and BMI of 30.5 kg/m2 3) Altered nutrition related lab values r/t current/chronic medical condition aeb elev LFTs, hyperglycemia, hypocalcemia, severe hypoalbuminemia Comments: Will continue to monitor PO status, skin status, pertinent labs and weight trends. Will f/u in 3-5 days. 1)) Continue to advance pt to diet when medically feasible and as tolerated 2) If albumin continues trending down, consider Prostat 1 pkt BID 3) Consider a daily MVI with 500mg VitC BID 4) Continue current plan of care
[2019-12-28 13:00] VITALS: BP 106/71
[2019-12-28] MEDS: FLUCONAZOLE 200MG/100ML 100 ML IV SCH (13:16)
[2019-12-28 14:57] VITALS: BP 106/71
[2019-12-28 17:00] VITALS: BP 126/76
--- NOTE | 2019-12-28 18:21 | NUR ---
RT NOTE PT WAS SEEN BY RT FOR HHN TX. PT TOLERATES WELL VIA MASK. NO ADVERSE REACTION NOTED. CONT ORDERED Addendum: 12/28/19 at 2227 by Bev Peterson RT Amended: Links added.
--- NOTE | 2019-12-28 19:20 | NUR ---
Opening Shift Note Assumed care of patient, awake and alert. No S/S of distress/SOB or pain. Pt receiving 2L o2 via NC. Crackles heard in posterior right lower lobe. Pt advised to lay on left side to help with right sided lung congestion. Pt also advised to use IS 10 times every hour to improve lung expansion and function. Pt returned demonstration and verbalized understanding. Safety measures in place, bed in lowest position, bed rails raised x2, call light within reach. Instructed on POC and to call for assist PRN, will continue to monitor for changes Q1hr and PRN. Addendum: 12/29/19 at 0201 by Elizabeth Gamboa RN RN Pt IS ability measured at 900-1000.
--- NOTE | 2019-12-28 20:00 | NUR ---
Pt requested beef broth, was given broth and assessed on need for assistance to consume. No issues noted, pt was able to hold cup on his own and drink independently. Pt advised to call for assistance if needed.
[2019-12-28 22:00] VITALS: BP 131/81
--- NOTE | 2019-12-28 22:00 | NUR ---
Bactroban Non Admin Bactroban topical not administered. Could not find ointment in patient cassette or at bedside. Pt said that he has been applying chap stick to lips and felt that was enough to help with the scab. Non admin charted in eMAR.
--- NOTE | 2019-12-28 22:02 | NUR ---
RT NOTE PT WAS SEEN BY RT FOR HHN TX. PT TOLERATES WELL VIA MASK. NO ADVERSE REACTION NOTED. FIO2 INCREASED TO 3LPM. CONT ORDERED Addendum: 12/28/19 at 2229 by Bev Peterson RT Amended: Links added.
[2019-12-29] MEDS: ACCU-CHEK COMFORT CURVE STRIP VI SCH ×4 (00:42→18:00)
[2019-12-29] MEDS: MEROPENEM 1GM IVPB 100 ML IV SCH (01:56)
[2019-12-29] MEDS: IPRATROPIUM BROM 0.5 MG/2.5ML INH SOL NEB SCH ×6 (02:23→22:52)
[2019-12-29] MEDS: ALBUTEROL SULF 2.5 MG/0.5ML(0.5%) NEB SOLN NEB SCH ×6 (02:23→22:52)
--- NOTE | 2019-12-29 02:28 | NUR ---
RT NOTE PT WAS SEEN BY RT FOR HHN TX. PT TOLERATES WELL VIA MASK. NO ADVERSE REACTION NOTED. CONT ORDERED Addendum: 12/29/19 at 0242 by Bev Peterson RT Amended: Links added.
--- NOTE | 2019-12-29 04:09 | NUR ---
Patient has low grade temperature of 100.1. Temperature does not meet the parameters for medication. Cooling measures applied. Will continue to monitor every hour and as needed.
[2019-12-29 05:00] VITALS: BP 126/74
[2019-12-29] MEDS: InsuLIN REG 1unit/0.01ml Soln (100units/ml) SC SCH ×4 (06:00→18:40)
[2019-12-29 06:17] LABS: Basophils # (auto) 0 10 ^3/uL (0-0.2); Basophils % (auto) 0.3 % (0.0-2.0); Eosinophils # (auto) 0.1 10 ^3/uL (0-0.8); Eosinophils % (auto) 0.9 % (0.0-7.0); Hematocrit 35.5 % (41.0-53.0); Hemoglobin 11.9 g/dL (13.5-17.5); Mean Corpuscular Hemoglobin 28.7 pg (28.0-32.0); Mean Corpuscular Hgb Conc. 33.7 g/dL (32.0-36.0); Mean Corpuscular Volume 85.1 fL (80.0-100.0); Monocytes # (auto) 0.8 10 ^3/uL (0-1.3); Monocytes % (auto) 6.8 % (0.0-12.0); Neutrophils # (auto) 9.6 10 ^3/uL (1.6-8.6); Nucleated Red Blood Cells % 0.1 %; Platelet Count (auto) 291 10^3/uL (140-450); Red Blood Cells 4.17 10^6/uL (4.5-5.90); White Blood Cell 11.5 10^3/uL (4.4-10.8)
[2019-12-29 06:39] LABS: Potassium 3.3 mmol/L (3.5-5.1)
[2019-12-29 06:48] LABS: BUN/Creatinine Ratio 26.2; Calcium 7.5 mg/dL (8.5-10.1)
--- NOTE | 2019-12-29 07:33 | NUR ---
Opening Shift Note Assumed care of patient from noc shift rn, awake and alert. Denies SOB, no complains of pain at this time. Instructed on POC and to call for assist PRN, Bed in low and locked position. will continue to monitor for changes Q1hr and PRN.
[2019-12-29] MEDS: LINEZOLID 600MG/300ML 300 ML IV SCH (08:47)
[2019-12-29 09:00] VITALS: BP 136/68
[2019-12-29] MEDS ORDERED: POTASSIUM EFFERVESENT TAB 25 MEQ PO ONE (09:30)
[2019-12-29] MEDS: MUPIROCIN 2% OINT 15gm or 22gm TOP SCH ×2 (10:00→22:00)
[2019-12-29] MEDS: PANTOPRAZOLE 40 MG/10 ML VIAL INJ IV SCH (10:58)
[2019-12-29] MEDS: FUROSEMIDE 20 MG/2 ML VIAL IV SCH (10:58)
[2019-12-29] MEDS: DOCUSATE SOD 100 MG CAP PO SCH ×2 (10:59→22:25)
[2019-12-29] MEDS: INSULIN LANTUS (GLARGINE) 1 /0.01ml (100units/ml) SC SCH ×2 (11:24→22:30)
[2019-12-29 12:00] VITALS: BP 104/71
[2019-12-29] MEDS ORDERED: DOXYCYCLINE 100 MG TAB/CAP PO ONE (14:15)
--- NOTE | 2019-12-29 14:15 | NUR ---
patient encouraged to ambulate with PT. observed patient using incentive spirometer.
[2019-12-29] MEDS: cefTRIAXone 1GM/50ML D5W 50 ML IV SCH (15:04)
[2019-12-29] MEDS: FLUCONAZOLE 100 MG TAB PO SCH (15:14)
[2019-12-29] MEDS: ENOXAPARIN SOD 40 MG/0.4 ML SYRINGE SC SCH (15:27)
[2019-12-29 16:46] VITALS: BP 117/79
--- NOTE | 2019-12-29 18:20 | NUR ---
RT NOTE PT WAS SEEN BY RT FOR HHN TX. PT TOLERATES WELL VIA MASK. NO ADVERSE REACTION NOTED. PT DOES HIS INCENTIVE SPIROMETRY REGULARLY. PT STATES HE DID 1999 TODAY. CONT ORDERED Addendum: 12/29/19 at 1938 by Bev Peterson RT Amended: Links added.
--- NOTE | 2019-12-29 19:20 | NUR ---
Opening Shift Note Assumed care of patient, awake and alert. No S/S of distress/SOB or pain. Safety measures in place, bed in lowest position, bed rails raised x2, call light within reach. Linen and gown change performed. All needs met at this time. Instructed on POC and to call for assist PRN, will continue to monitor for changes Q1hr and PRN.
--- NOTE | 2019-12-29 21:55 | NUR ---
RT NOTE PT WAS SEEN BY RT FOR HHN TX. PT TOLERATES WELL VIA MASK. NO ADVERSE REACTION NOTED. CONT ORDERED Addendum: 12/29/19 at 2256 by Bev Peterson RT Amended: Links added.
[2019-12-29] MEDS: DOXYCYCLINE 100 MG TAB/CAP PO SCH (22:25)
[2019-12-30] MEDS: IPRATROPIUM BROM 0.5 MG/2.5ML INH SOL NEB SCH ×6 (02:16→22:26)
[2019-12-30] MEDS: ALBUTEROL SULF 2.5 MG/0.5ML(0.5%) NEB SOLN NEB SCH ×6 (02:16→22:26)
[2019-12-30] MEDS: ACCU-CHEK COMFORT CURVE STRIP VI SCH ×5 (03:00→23:38)
[2019-12-30] MEDS: InsuLIN REG 1unit/0.01ml Soln (100units/ml) SC SCH ×5 (05:36→23:44)
--- NOTE | 2019-12-30 07:30 | NUR ---
Opening Shift Note Assumed care of patient, awake and alert. No S/S of distress/SOB or pain. Bed is low, locked with 2x side rails up. Call light is within reach. Instructed on POC and to call for assist PRN, will continue to monitor for changes Q1hr and PRN.
[2019-12-30] MEDS: cefTRIAXone 1GM/50ML D5W 50 ML IV SCH (08:51)
[2019-12-30] MEDS: FUROSEMIDE 20 MG/2 ML VIAL IV SCH (08:55)
[2019-12-30] MEDS: FLUCONAZOLE 100 MG TAB PO SCH (08:56)
[2019-12-30] MEDS: PANTOPRAZOLE 40 MG/10 ML VIAL INJ IV SCH (08:56)
[2019-12-30] MEDS: DOCUSATE SOD 100 MG CAP PO SCH ×2 (08:56→21:40)
[2019-12-30] MEDS: DOXYCYCLINE 100 MG TAB/CAP PO SCH ×2 (08:56→21:40)
[2019-12-30] MEDS: MUPIROCIN 2% OINT 15gm or 22gm TOP SCH ×2 (08:57→21:39)
[2019-12-30] MEDS: ENOXAPARIN SOD 40 MG/0.4 ML SYRINGE SC SCH (08:57)
[2019-12-30 09:00] VITALS: BP 110/69
[2019-12-30] MEDS: INSULIN LANTUS (GLARGINE) 1 /0.01ml (100units/ml) SC SCH ×2 (10:00→23:43)
--- NOTE | 2019-12-30 12:07 | NUR ---
Family update Spoke with tomasa Guillory after password was verified. Updated family on POC. All questions answered at this time.
[2019-12-30 13:00] VITALS: BP 115/73
[2019-12-30 16:57] VITALS: BP 114/68
[2019-12-30] MEDS: Glucerna Carbsteady SHAKE Vanilla 8oz PO SCH (17:48)
[2019-12-30 23:56] VITALS: BP 109/63
[2019-12-31] MEDS: IPRATROPIUM BROM 0.5 MG/2.5ML INH SOL NEB SCH ×7 (02:33→22:25)
[2019-12-31] MEDS: ALBUTEROL SULF 2.5 MG/0.5ML(0.5%) NEB SOLN NEB SCH ×7 (02:33→22:25)
[2019-12-31] MEDS: ACCU-CHEK COMFORT CURVE STRIP VI SCH ×3 (05:43→18:14)
[2019-12-31] MEDS: InsuLIN REG 1unit/0.01ml Soln (100units/ml) SC SCH ×3 (05:43→18:15)
[2019-12-31 06:05] VITALS: BP 113/77
[2019-12-31 06:39] LABS: Basophils # (auto) 0.1 10 ^3/uL (0-0.2); Basophils % (auto) 0.5 % (0.0-2.0); Eosinophils # (auto) 0.2 10 ^3/uL (0-0.8); Eosinophils % (auto) 1.4 % (0.0-7.0); Hematocrit 39.7 % (41.0-53.0); Hemoglobin 13.4 g/dL (13.5-17.5); Lymphocytes # (auto) 1.1 10 ^3/uL (0.4-5.4); Lymphocytes % (auto) 7.8 % (10.0-50.0); Mean Corpuscular Hemoglobin 28.6 pg (28.0-32.0); Mean Corpuscular Hgb Conc. 33.8 g/dL (32.0-36.0); Mean Corpuscular Volume 84.6 fL (80.0-100.0); Monocytes # (auto) 0.8 10 ^3/uL (0-1.3); Monocytes % (auto) 5.4 % (0.0-12.0); Neutrophils # (auto) 12.4 10 ^3/uL (1.6-8.6); Neutrophils % (auto) 84.9 % (37.0-80.0); Nucleated Red Blood Cells % 0.2 %; Platelet Count (auto) 297 10^3/uL (140-450); Red Blood Cells 4.69 10^6/uL (4.5-5.90); Red Cell Distribution Width 13.6 % (11.8-14.3); White Blood Cell 14.6 10^3/uL (4.4-10.8)
[2019-12-31 06:41] LABS: Albumin 1.9 g/dL (3.4-5.0); Calcium 8.4 mg/dL (8.5-10.1); Potassium 3.8 mmol/L (3.5-5.1)
[2019-12-31 06:45] LABS: BUN/Creatinine Ratio 18.2; Bilirubin, Total 0.6 mg/dL (0.2-1.0); Total Protein 7.3 g/dL (6.4-8.2)
[2019-12-31] MEDS: Glucerna Carbsteady SHAKE Vanilla 8oz PO SCH ×3 (08:31→18:14)
[2019-12-31] MEDS: PANTOPRAZOLE 40 MG/10 ML VIAL INJ IV SCH (08:32)
[2019-12-31] MEDS: cefTRIAXone 1GM/50ML D5W 50 ML IV SCH (08:33)
[2019-12-31] MEDS: FUROSEMIDE 20 MG/2 ML VIAL IV SCH (08:35)
[2019-12-31] MEDS: ENOXAPARIN SOD 40 MG/0.4 ML SYRINGE SC SCH (08:35)
[2019-12-31] MEDS: DOCUSATE SOD 100 MG CAP PO SCH ×2 (08:35→21:16)
[2019-12-31] MEDS: DOXYCYCLINE 100 MG TAB/CAP PO SCH ×2 (08:36→21:16)
[2019-12-31] MEDS: FLUCONAZOLE 100 MG TAB PO SCH (08:36)
[2019-12-31 09:00] VITALS: BP 122/67
[2019-12-31] MEDS: INSULIN LANTUS (GLARGINE) 1 /0.01ml (100units/ml) SC SCH ×2 (10:00→22:07)
[2019-12-31] MEDS: MUPIROCIN 2% OINT 15gm or 22gm TOP SCH ×2 (10:00→21:17)
--- NOTE | 2019-12-31 10:22 | NUR ---
Called pharmacy Bactroban is not in patient medication cassette. Pharmacy to send replacement.
[2019-12-31 13:00] VITALS: BP 138/62
--- NOTE | 2019-12-31 13:32 | NUR ---
SWALLOW EVALUATION. PATIENT IS ALERT AND ABLE TO FOLLOW COMMANDS. PATIENT HAS NATURAL TEETH. ABLE TO TOLERATE MECHANICAL SOFT DIET TEXTURE WITH THIN LIQUIDS WITH NO OVERT SIGNS OR SYMPTOMS OF ASPIRATION NOTED. NURSING NOTIFIED.
--- NOTE | 2019-12-31 14:42 | NUR ---
Nutrition Followup Notes Wt 71.4kg Pt was alert and oriented at time of rounds. Pt reports appetite is okay. Pt consumed 100% of meal 12/29 of full liquid. Pt is s/p swallow eval, pt diet advanced mech soft and thin liqs per ST and MD order. Will monitor pt po intake of advanced diet. Est Energy needs: 6131-9208 kcals (17-20 kcal/kgBW) Est Protein needs: 100-133 gms/day (1.2-1.6 gm/kgBW) Will continue to monitor and reassess prn. Labs: Creat 0.66L, Ca 8.4L, Alb 1.9L BM: Pt with 1 BM 12/30 per RN note. Skin: BS 17 mod risk, full details in patient care representative doc PES: Resolved, pt diet advanced to mech soft and thin liq will monitor tolerance 1) Increased nutrient needs r/t pt with no PO intake aeb pt is sedated, intubated, NPO with NG tube clamped 2) Obesity r/t energy intake in excess of energy needs aeb 135% IBW and BMI of 30.5 kg/m2 3) Altered nutrition related lab values r/t current/chronic medical condition aeb elev LFTs, hyperglycemia, hypocalcemia, severe hypoalbuminemia Comments: Will continue to monitor PO status, skin status, pertinent labs and weight trends. Will f/u in 3-5 days. 1)) Continue to advance pt to diet when medically feasible and as tolerated 2) If albumin continues trending down, consider Prostat 1 pkt BID 3) Consider a daily MVI with 500mg VitC BID 4) Continue current plan of care
[2019-12-31 17:00] VITALS: BP 107/63
--- NOTE | 2019-12-31 17:08 | NUR ---
Dr. Rissa Messer MD at bedside discussing POC with patient. New orders received to change Lantus dosage (see orders).
--- NOTE | 2019-12-31 19:35 | NUR ---
assumed care, p[t. awake, weak in appearance, no c/o pain, repositioned pt. not in distress.
[2019-12-31 22:00] VITALS: BP 114/77
--- NOTE | 2019-12-31 22:26 | NUR ---
PT WOKEN UP FOR SCHEDULED NEB TX. PT DENIES SOB OR NEED FOR TX FOR THE NIGHT. PT IS AWARE TO PAGE IF HE BECOMES SOB OR NEEDS NEB.
[2019-12-31 23:04] VITALS: BP 107/63
[2020-01-01] MEDS: InsuLIN REG 1unit/0.01ml Soln (100units/ml) SC SCH ×5 (00:01→23:55)
[2020-01-01] MEDS: ACCU-CHEK COMFORT CURVE STRIP VI SCH ×5 (00:01→23:54)
--- NOTE | 2020-01-01 00:30 | NUR ---
given report to rica Rey, to continue pt. care.
[2020-01-01 05:50] VITALS: BP 136/67
--- NOTE | 2020-01-01 07:00 | NUR ---
OPENING SHIFT NOTES Assumed care of patient from manager shift RN. Patient is alert and oriented x4, no signs of distress noted, patient denies pain. Plan of care was discussed with the patient and he verbalized understanding. Patient is receiving oxygen at 3L/min via nasal cannula, oxygen saturation 93%. Bed is locked, in the lowest position, side rails up x2 and call light is in reach. Patient was encouraged to call for assistance as needed.
[2020-01-01 07:11] LABS: Basophils # (auto) 0.1 10 ^3/uL (0-0.2); Basophils % (auto) 0.5 % (0.0-2.0); Eosinophils # (auto) 0.2 10 ^3/uL (0-0.8); Eosinophils % (auto) 1.6 % (0.0-7.0); Hematocrit 35.9 % (41.0-53.0); Hemoglobin 12.1 g/dL (13.5-17.5); Mean Corpuscular Hemoglobin 28.5 pg (28.0-32.0); Mean Corpuscular Hgb Conc. 33.7 g/dL (32.0-36.0); Mean Corpuscular Volume 84.7 fL (80.0-100.0); Monocytes # (auto) 0.7 10 ^3/uL (0-1.3); Neutrophils % (auto) 85.9 % (37.0-80.0); Platelet Count (auto) 257 10^3/uL (140-450); Red Blood Cells 4.24 10^6/uL (4.5-5.90); Red Cell Distribution Width 13.6 % (11.8-14.3); White Blood Cell 13.9 10^3/uL (4.4-10.8)
[2020-01-01 07:33] LABS: BUN/Creatinine Ratio 24.5; Calcium 8.3 mg/dL (8.5-10.1); Potassium 3.7 mmol/L (3.5-5.1)
[2020-01-01] MEDS: ALBUTEROL SULF 2.5 MG/0.5ML(0.5%) NEB SOLN NEB SCH ×5 (07:47→22:20)
[2020-01-01] MEDS: IPRATROPIUM BROM 0.5 MG/2.5ML INH SOL NEB SCH ×5 (07:47→22:20)
[2020-01-01] MEDS: Glucerna Carbsteady SHAKE Vanilla 8oz PO SCH ×3 (08:16→18:09)
[2020-01-01] MEDS: cefTRIAXone 1GM/50ML D5W 50 ML IV SCH (08:34)
[2020-01-01 09:00] VITALS: BP 120/74
[2020-01-01] MEDS: FLUCONAZOLE 100 MG TAB PO SCH (09:39)
[2020-01-01] MEDS: PANTOPRAZOLE 40 MG/10 ML VIAL INJ IV SCH (09:39)
[2020-01-01] MEDS: DOCUSATE SOD 100 MG CAP PO SCH ×2 (09:39→21:28)
[2020-01-01] MEDS: FUROSEMIDE 20 MG/2 ML VIAL IV SCH (09:39)
[2020-01-01] MEDS: DOXYCYCLINE 100 MG TAB/CAP PO SCH (09:40)
[2020-01-01] MEDS: INSULIN LANTUS (GLARGINE) 1 /0.01ml (100units/ml) SC SCH ×2 (09:41→22:21)
[2020-01-01] MEDS: ENOXAPARIN SOD 40 MG/0.4 ML SYRINGE SC SCH (09:42)
[2020-01-01] MEDS: MUPIROCIN 2% OINT 15gm or 22gm TOP SCH ×2 (09:42→21:29)
--- NOTE | 2020-01-01 10:27 | NUR ---
CALL FROM FAMILY Patient's son Kahlil called. After verification of password he was updated on the patient status and the plan of care. He verbalized understanding and all questions answered.
--- NOTE | 2020-01-01 10:34 | NUR ---
VICTORINA AT BEDSIDE Updated on the patient status. Plan of care discussed with the patient and he verbalized understanding. Per MD assess patient oxygen on room air. Will update the MD after Oxygen saturation at room air is assessed.
--- NOTE | 2020-01-01 11:51 | NUR ---
PATIENT OXYGEN SATURATION ON RA 86% Placed back on 3L/min via nasal cannula, saturation 92%. MD Scott informed, no new orders received.
--- NOTE | 2020-01-01 12:10 | NUR ---
PT AT BEDSIDE
[2020-01-01] MEDS ORDERED: levoFLOXacin 250 MG TAB PO ONE (12:30)
--- NOTE | 2020-01-01 12:56 | NUR ---
Nutrition Followup Notes Wt : 71.4 kg Pt was with MD at bedside. per records pt with improving PNA. pt is currently on [facility] soft diet with Glucerna carton tid with adequate PO of 100% x 3 per RN doc Est Energy needs: 0447-3557 kcals (17-20 kcal/kgBW), Est Protein needs: 100-133 gms/day (1.2-1.6 gm/kgBW). Will continue to monitor and reassess prn. Labs: CA 8.3 L, rest labs wnl for today BM: Pt with 1 BM today per RN note. Skin: BS 14 mod risk, full details in menagerie caretaker doc PES: Resolved, pt diet advanced to [facility] soft and thin liq will monitor tolerance 1) Increased nutrient needs r/t pt with no PO intake aeb pt is sedated, intubated, NPO with NG tube clamped 2) Obesity r/t energy intake in excess of energy needs aeb 135% IBW and BMI of 30.5 kg/m2 3) Altered nutrition related lab values r/t current/chronic medical condition aeb elev LFTs, hyperglycemia, hypocalcemia, severe hypoalbuminemia Comments: Will continue to monitor PO status, skin status, pertinent labs and weight trends. Will f/u in 3-5 days. 1) If albumin continues trending down, consider Prostat 1 pkt BID. 2) Consider a daily MVI with 500mg VitC BID. 3) Continue current plan of care
[2020-01-01 13:00] VITALS: BP 112/66
--- NOTE | 2020-01-01 13:23 | NUR ---
CALLED PATIENT FAMILY to updated on the plan of care and patient status. Patient's son Kahlil verified password and was updated, he verbalized understanding and all questions were answered.
[2020-01-01 17:00] VITALS: BP 126/80
[2020-01-01 22:00] VITALS: BP 109/67
[2020-01-02] MEDS: ALBUTEROL SULF 2.5 MG/0.5ML(0.5%) NEB SOLN NEB SCH ×6 (02:37→22:57)
[2020-01-02] MEDS: IPRATROPIUM BROM 0.5 MG/2.5ML INH SOL NEB SCH ×6 (02:37→22:57)
[2020-01-02] MEDS: ACETAMINOPHEN 650 mg PER 20 mL UD PO PRN (04:54)
[2020-01-02 05:50] VITALS: BP 114/70
[2020-01-02] MEDS: InsuLIN REG 1unit/0.01ml Soln (100units/ml) SC SCH ×4 (06:00→23:26)
[2020-01-02] MEDS: ACCU-CHEK COMFORT CURVE STRIP VI SCH ×3 (06:05→18:00)
--- NOTE | 2020-01-02 07:37 | NUR ---
Report given to Madi Samayoa, patient is resting no distress.
[2020-01-02] MEDS: Glucerna Carbsteady SHAKE Vanilla 8oz PO SCH ×3 (08:00→18:00)
[2020-01-02] MEDS ORDERED: cefTRIAXone 1GM/50ML D5W 50 ML IV ONE (08:30)
[2020-01-02 09:00] VITALS: BP 113/66
[2020-01-02] MEDS: FLUCONAZOLE 100 MG TAB PO SCH (09:27)
[2020-01-02] MEDS: levoFLOXacin 250 MG TAB PO SCH (09:27)
[2020-01-02] MEDS: DOCUSATE SOD 100 MG CAP PO SCH ×2 (09:27→21:18)
[2020-01-02] MEDS: ENOXAPARIN SOD 40 MG/0.4 ML SYRINGE SC SCH (09:27)
[2020-01-02] MEDS: MUPIROCIN 2% OINT 15gm or 22gm TOP SCH ×2 (09:27→21:50)
[2020-01-02] MEDS: INSULIN LANTUS (GLARGINE) 1 /0.01ml (100units/ml) SC SCH ×2 (09:27→21:48)
--- NOTE | 2020-01-02 11:55 | NUR ---
D/C Planning Regarding social service consult for home oxygen at 3 l/min for two weeks. Patient [employer] is secure but patient will be responsible for home oxygen until his [employer] is active. Spoke to patient regarding social service consult for home oxygen. Informed patient SG will contact him in regards of payment for the equipment. Patient ask me to speak to his son Leighton . Placed call to Leighton. Informed Leighton patient [employer] is secure but not active at this time and patient will be responsible for the cost of the oxygen. Informed Leighton SG will contact patient or himself in regards of payment. Informed Leighton once patient [employer] is active, Tyler can assist with home oxygen if needed after he sees primary doctor in 2 weeks as recommended by Dr. Scott.
[2020-01-02 13:00] VITALS: BP 129/95
[2020-01-02 17:00] VITALS: BP 121/74
[2020-01-02] MEDS: cefTRIAXone 1GM/50ML D5W 50 ML IV SCH (21:17)
[2020-01-02 22:00] VITALS: BP 118/72
[2020-01-03] MEDS: IPRATROPIUM BROM 0.5 MG/2.5ML INH SOL NEB SCH ×6 (02:39→22:18)
[2020-01-03] MEDS: ALBUTEROL SULF 2.5 MG/0.5ML(0.5%) NEB SOLN NEB SCH ×6 (02:39→22:18)
[2020-01-03 05:00] VITALS: BP 115/74
[2020-01-03] MEDS: ACETAMINOPHEN 650 mg PER 20 mL UD PO PRN ×2 (05:15→21:27)
[2020-01-03] MEDS: ACCU-CHEK COMFORT CURVE STRIP VI SCH ×5 (05:39→23:39)
[2020-01-03] MEDS: InsuLIN REG 1unit/0.01ml Soln (100units/ml) SC SCH ×4 (05:39→23:38)
--- NOTE | 2020-01-03 07:32 | NUR ---
Care report given to Madi Gilman, patient is resting no distress.
[2020-01-03 08:44] VITALS: BP 109/77
[2020-01-03] MEDS: cefTRIAXone 1GM/50ML D5W 50 ML IV SCH (09:24)
[2020-01-03] MEDS: Glucerna Carbsteady SHAKE Vanilla 8oz PO SCH ×3 (09:25→17:41)
[2020-01-03] MEDS: levoFLOXacin 250 MG TAB PO SCH (09:26)
[2020-01-03] MEDS: ENOXAPARIN SOD 40 MG/0.4 ML SYRINGE SC SCH (09:26)
[2020-01-03] MEDS: DOCUSATE SOD 100 MG CAP PO SCH ×2 (09:26→21:27)
[2020-01-03] MEDS: MUPIROCIN 2% OINT 15gm or 22gm TOP SCH ×2 (09:26→21:27)
[2020-01-03] MEDS: FLUCONAZOLE 100 MG TAB PO SCH (09:26)
[2020-01-03] MEDS: INSULIN LANTUS (GLARGINE) 1 /0.01ml (100units/ml) SC SCH ×2 (09:35→23:39)
--- NOTE | 2020-01-03 10:20 | NUR ---
IV Access Order to remove all IV access. IV DC'd with clean sterile technique, catheter fully intact. Pressure dressing applied to site. Patient tolerated well.
[2020-01-03 13:00] VITALS: BP 104/65
[2020-01-03 17:00] VITALS: BP 121/74
--- NOTE | 2020-01-03 17:03 | NUR ---
D/C Planning Placed follow up called to [phone] this morning, spoke to Shira regarding oxygen portable. Per Leeanna Silva will contact patient son Leighton [phone] regarding co-pay.
--- NOTE | 2020-01-03 19:01 | NUR ---
RT NOTE PT WAS SEEN BY RT FOR HHN TX. PT TOLERATES WELL VIA MASK. PT HAS A DRY, NONPRODUCTIVE COUGH NOTED. NO ADVERSE REACTION NOTED. Addendum: 01/03/20 at 1902 by Bev Peterson RT Amended: Links added.
[2020-01-03 20:19] VITALS: BP 121/74
[2020-01-03 22:00] VITALS: BP 122/72
--- NOTE | 2020-01-03 22:20 | NUR ---
RT NOTE PT WAS SEEN BY RT FOR HHN TX. PT TOLERATES WELL VIA MASK. NO ADVERSE REACTION NOTED. NONPRODUCTIVE COUGH NOTED. CONT ORDERED Addendum: 01/03/20 at 2243 by Bev Peterson RT Amended: Links added.
[2020-01-04] MEDS: IPRATROPIUM BROM 0.5 MG/2.5ML INH SOL NEB SCH ×4 (02:00→11:05)
[2020-01-04] MEDS: ALBUTEROL SULF 2.5 MG/0.5ML(0.5%) NEB SOLN NEB SCH ×4 (02:00→11:05)
--- NOTE | 2020-01-04 02:20 | NUR ---
RT NOTE PT WAS SEEN BY RT FOR HHN TX. PT IS SLEEPING WITHOUT SOB OR DISTRESS. TX WAS HELD TO ALLOW PT TO SLEEP. CONT ORDERED Addendum: 01/04/20 at 0221 by Bev Peterson RT Amended: Links added.
[2020-01-04 05:00] VITALS: BP 118/74
[2020-01-04] MEDS: InsuLIN REG 1unit/0.01ml Soln (100units/ml) SC SCH ×2 (06:00→12:00)
[2020-01-04] MEDS: ACCU-CHEK COMFORT CURVE STRIP VI SCH ×2 (06:17→12:00)
[2020-01-04 07:21] LABS: Basophils # (auto) 0.1 10 ^3/uL (0-0.2); Basophils % (auto) 0.7 % (0.0-2.0); Eosinophils # (auto) 0.5 10 ^3/uL (0-0.8); Eosinophils % (auto) 3.7 % (0.0-7.0); Hematocrit 37.1 % (41.0-53.0); Hemoglobin 12.1 g/dL (13.5-17.5); Lymphocytes # (auto) 1.1 10 ^3/uL (0.4-5.4); Lymphocytes % (auto) 8.4 % (10.0-50.0); Mean Corpuscular Hgb Conc. 32.5 g/dL (32.0-36.0); Mean Corpuscular Volume 86.1 fL (80.0-100.0); Monocytes # (auto) 0.5 10 ^3/uL (0-1.3); Monocytes % (auto) 4.1 % (0.0-12.0); Neutrophils # (auto) 10.7 10 ^3/uL (1.6-8.6); Neutrophils % (auto) 83.1 % (37.0-80.0); Platelet Count (auto) 267 10^3/uL (140-450); Red Blood Cells 4.32 10^6/uL (4.5-5.90); Red Cell Distribution Width 14.1 % (11.8-14.3); White Blood Cell 12.9 10^3/uL (4.4-10.8)
[2020-01-04 07:41] LABS: BUN/Creatinine Ratio 22.8; Calcium 8.6 mg/dL (8.5-10.1); Potassium 4.9 mmol/L (3.5-5.1)
[2020-01-04] MEDS: ACETAMINOPHEN 650 mg PER 20 mL UD PO PRN (08:13)
[2020-01-04] MEDS: Glucerna Carbsteady SHAKE Vanilla 8oz PO SCH ×2 (08:18→12:00)
[2020-01-04 08:46] VITALS: BP 118/76
--- NOTE | 2020-01-04 08:47 | NUR ---
Oxygen Received The patient received his portable oxygen tank and supplied yesterday evening. There was some issue with a co-pay that needed to be paid first. The patient's son was notified but it was not confirmed if he paid it. Apparently he did. Nothing eles preventing the patient from discharge. Will continue to monitor.
--- NOTE | 2020-01-04 09:25 | NUR ---
High Temp During morning vital signs the patient was found to have a temperature of 101.6. Tylenol was given and cooling measures were initiated. Upon reassessment, the patient's temperature was 98.1. Dr. Oviedo made aware of the situation. Will continue to monitor.
[2020-01-04] MEDS ORDERED: METF-771 PO (11:01)
[2020-01-04] MEDS ORDERED: AMOX500T86 PO (11:02)
[2020-01-04] MEDS ORDERED: GLIP5TAB12 PO (11:02)
[2020-01-04] MEDS ORDERED: LEVO750T8 PO (11:04)
[2020-01-04] MEDS ORDERED: ACET325T82 PO (11:06)
[2020-01-04] MEDS: levoFLOXacin 250 MG TAB PO SCH (11:06)
[2020-01-04] MEDS: DOCUSATE SOD 100 MG CAP PO SCH (11:07)
[2020-01-04] MEDS: ENOXAPARIN SOD 40 MG/0.4 ML SYRINGE SC SCH (11:07)
[2020-01-04] MEDS: MUPIROCIN 2% OINT 15gm or 22gm TOP SCH (11:08)
[2020-01-04] MEDS: INSULIN LANTUS (GLARGINE) 1 /0.01ml (100units/ml) SC SCH (11:21)
[2020-01-04 12:42] VITALS: BP 114/74
--- NOTE | 2020-01-04 15:01 | NUR ---
Nutrition Followup Notes Wt : 66 kg Pt was sleeping at time of rounds. per records pt with improving PNA. pt is currently on [facility] soft diet with Glucerna carton tid with adequate PO of 75% avg x 3 days per RN doc. Pt possible DC today with portable oxygen per geriatric social work professor. Est Energy needs: 2778-5747 kcals (17-20 kcal/kgBW), Est Protein needs: 100-133 gms/day (1.2-1.6 gm/kgBW). Will continue to monitor and reassess prn. Labs: Creat 0.57L, GLUC 129H, Alb 1.9L BM: Pt with 1 BM today per RN note. Skin: BS 17 mod risk, full details in pediatric acute care unit nurse doc PES: Resolved, pt diet advanced to [facility] soft and thin liq will monitor tolerance 1) Increased nutrient needs r/t pt with no PO intake aeb pt is sedated, intubated, NPO with NG tube clamped 2) Obesity r/t energy intake in excess of energy needs aeb 135% IBW and BMI of 30.5 kg/m2 3) Altered nutrition related lab values r/t current/chronic medical condition aeb elev LFTs, hyperglycemia, hypocalcemia, severe hypoalbuminemia Comments: Will continue to monitor PO status, skin status, pertinent labs and weight trends. Will f/u in 3-5 days. 1) If albumin continues trending down, consider Prostat 1 pkt BID. 2) Consider a daily MVI with 500mg VitC BID. 3) Continue current plan of care
--- NOTE | 2020-01-04 18:14 | NUR ---
Patient Discharged. Received the order to discharge the patient after the doctor confirmed the patient received his home oxygen. Prepared all the discharge paperwork, reviewed it with the patient, he stated he understood. Removed the patient telemetry box, he had no IV to remove, and gathered all belongings and supplies. The patient was discharged via wheel chair at 1415hrs. Will continue to monitor.
== END 2020-01-04 14:15 | disposition home or self-care (01) | DRG 720 ==
LOC: ER 13:07 → TELE 13:08 → TELE-EAST 12-15 10:45 → TELE 12-15 12:53 → ICU WEST 12-18 23:18 → TELE-WESTW 12-27 11:16
PROVIDERS: ADMIT Nurse Practitioner; ATTEND Internal Medicine Nephrology
PROC: 02HV33Z Insertion of Infusion Device into Superior Vena Cava, Percutaneous Approach (ICD-10-PCS; principal; 2019-12-16)
PROC: 5A1955Z Respiratory Ventilation, Greater than 96 Consecutive Hours (ICD-10-PCS; 2019-12-16)
PROC: 0BH17EZ Insertion of Endotracheal Airway into Trachea, Via Natural or Artificial Opening (ICD-10-PCS; 2019-12-16)
PROC: 5A1935Z Respiratory Ventilation, Less than 24 Consecutive Hours (ICD-10-PCS; 2019-12-26)
PROC: 0BH17EZ Insertion of Endotracheal Airway into Trachea, Via Natural or Artificial Opening (ICD-10-PCS; 2019-12-26)
DX: A41.9 Sepsis, unspecified organism (principal); J96.01 Acute respiratory failure with hypoxia; R65.21 Severe sepsis with septic shock; E87.1 Hypo-osmolality and hyponatremia; E87.4 Mixed disorder of acid-base balance; Z99.11 Dependence on respirator [ventilator] status; E87.6 Hypokalemia; I10 Essential (primary) hypertension; Z91.19 Patient's noncompliance with other medical treatment and regimen; Z03.818 Encounter for observation for suspected exposure to other biological agents ruled out; Z68.24 Body mass index [BMI] 24.0-24.9, adult; J15.6 Pneumonia due to other Gram-negative bacteria; J12.9 Viral pneumonia, unspecified
CPT/HCPCS: 36415; 36600; 71045; 71046; 71275; 80048; 80053; 80202; 81001; 82565; 82728; 82805; 82962; 83036; 83605; 83615; 83735; 83880; 84132; 84443; 84484; 85007; 85025; 85027; 85379; 85610; 85730; 86141; 86703; 87040; 87070; 87077; 87081; 87205; 87804; 87880; 92610; 93005; 94002; 94003; 94640; 94660; 97110; 97116; 97530; C9113; G0378; J0696; J1450; J1815; J2185; J2250; J2543; J2704; J3480; J3490